=== PATIENT | male | born 1960 | race Caucasian/White ===

== ENCOUNTER 2017-02-05 17:24 | Emergency (ER) | payer OTHER ==
[~2017-02-05] VITALS: Ht 195.6 cm; Wt 130.0 kg
[~2017-02-05 17:24] MED LIST: ASPEC325 PO; CALC500C70 PO; CYCL10TA6 PO; DOCU-94 PO; EFFSR150 PO; FLM4 PO; HYDO25 TD; HYDR25TA5 PO; LEVO100T7 PO; MRLP17X PO; MULT-513 PO; NIFE1TAB53 PO; OMEP40CA41 PO; RXC5 PO; SNK PO; SUMA100T16 PO
[2017-02-05 17:30] VITALS: TEMP 36.9; Ht 195.6 cm; Wt 130.0 kg
[2017-02-05] MEDS ORDERED: METO-217 PO (17:44)
[2017-02-05] MEDS ORDERED: DOCU100C31 PO (17:57)
--- NOTE | 2017-02-05 18:20 | DIAGNOSTIC IMAGING REPORT ---
RIGHT FEMUR 3 VIEWS CLINICAL HISTORY: Right leg pain. FINDINGS: AP, lateral, and frog-leg views of the right femur are correlated with right hip radiographs dated 03/14/2014. The skeletal structures are osteopenic. A bipolar right hip arthroplasty is in near-anatomic alignment. A single cerclage wire is present around the femoral stem. More proximal cerclage wires seen on 03/22/2014 have been removed. There is periprosthetic lucency seen proximally. No fracture is identified. Chronic deformity of the proximal femur is unchanged. The distal femur is intact. 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 No bony erosion or periostitis is identified. Soft tissue edema is present in the right upper thigh. No subcutaneous gas is seen. The visualized right hemipelvis appears intact. IMPRESSION: 1. Soft tissue edema is present in the upper thigh. No acute bony abnormality is identified in the right femur. 2. A right hip arthroplasty is in near-anatomic alignment. Periprosthetic lucency is seen around the proximal aspect of the arthroplasty. 3. Additional findings as above. Electronically signed by: Robin Benitez M.D. 02/05/2017 6:19 PM Dictated Date/Time: 02/05/2017 6:16 PM
--- NOTE | 2017-02-05 20:18 | DIAGNOSTIC IMAGING REPORT ---
ULTRASOUND SOFT TISSUES RIGHT THIGH NONVASCULAR CLINICAL HISTORY: Right thigh swelling and erythema. COMPARISON STUDY: Radiographs of the right femur dated 02/05/2017. FINDINGS: Real-time, grayscale, and color flow sonography of the soft tissues of the right outer thigh is performed at the indicated site of interest. There is diffuse subcutaneous soft tissue edema in this region with pockets of subcutaneous fluid. No organized fluid collection is seen to suggest abscess. Mild hyperemia is suggested on color imaging. IMPRESSION: There is diffuse subcutaneous soft tissue edema with pockets of subcutaneous fluid identified within the right thigh at the site of interest, possibly representing cellulitis. There is no organized/drainable fluid collection seen to indicate abscess. Electronically signed by: Robin Benitez M.D. 02/05/2017 8:16 PM Dictated Date/Time: 02/05/2017 8:14 PM
[2017-02-05] MEDS ORDERED: CEPHALEXIN 500MG HOME PACK 1 EA BTL PO ONE (20:45)
[2017-02-05] MEDS ORDERED: CEPH500C PO ×2 (21:01→21:18)
--- NOTE | 2017-02-05 21:03 | EMERGENCY ROOM VISIT NOTE ---
ED Visit Note First contact with patient: 17:47 CHIEF COMPLAINT: Painful lump of the right upper, outer thigh HISTORY OF PRESENT ILLNESS: This 56-year-old male patient presents to the emergency department, ambulatory, with his , complaining of progressive worsening of a bump on his right upper outer thigh. He states he initially saw his PCP regarding the lump 2 weeks ago. He states at that time it was very small and flesh-colored. He said over the past 2 weeks, it has been increasing in pain, size, and turning red and warm. He states there is a significant amount of pain, but denies any drainage. The patient did have an x-ray performed by his PCP and was sent to orthopedics for evaluation due to the patient's history of hip replacement. The patient describes the pain as burning and rates it 9/10. He denies any history of abscess or cellulitis. He denies any open wounds. The patient is a patient of Dr. Slaughter of [facility]. He did see him and was told that it could be a muscular problem related to his previous hip replacement. The patient denies fever, chills, nausea, or loss of appetite. Movement of the right upper leg is not decreased because of the pain. The patient's tetanus shot is up to date. REVIEW OF SYSTEMS: A 10 system review of systems was performed with positives and pertinent negatives listed in the history of present illness. All other systems were reviewed and are negative. ALLERGIES: NSAIDs MEDICATIONS: Please see list. PMH: Hypertension, GERD, hypothyroidism SOCIAL HISTORY: The patient lives locally with family. He denies drug, alcohol , tobacco use. PHYSICAL EXAM: Vital Signs: Reviewed Nurse's notes, Temperature 36.9C, vital signs stable. GENERAL: This is a an obese 56-year-old white male, in no acute distress, is non toxic in appearance, well-developed, well-nourished. SKIN: The upper right lateral thigh is red, warm, very tender, and swollen. There is no lymphangitic streaking. There is no discharge. There is no fluctuance. There is mild induration. HEART: Regular rate and rhythm without murmur, gallop, or rub. LUNGS: Clear to auscultation bilaterally without wheezes, rales, or rhonchi. NEURO: Alert and oriented to person, place, and time. Normal sensation to light and sharp touch. Capillary reflex less than 2 seconds. Peripheral pulses 2 + bilaterally. RADIOLOGY: U/S Right Lower Extremity (thigh): ULTRASOUND SOFT TISSUES RIGHT THIGH NONVASCULAR CLINICAL HISTORY: Right thigh swelling and erythema. COMPARISON STUDY: Radiographs of the right femur dated 02/05/2017. FINDINGS: Real-time, grayscale, and color flow sonography of the soft tissues of the right outer thigh is performed at the indicated site of interest. There is diffuse subcutaneous soft tissue edema in this region with pockets of subcutaneous fluid. No organized fluid collection is seen to suggest abscess. Mild hyperemia is suggested on color imaging. IMPRESSION: There is diffuse subcutaneous soft tissue edema with pockets of subcutaneous fluid identified within the right thigh at the site of interest, possibly representing cellulitis. There is no organized/drainable fluid collection seen to indicate abscess. Electronically signed by: Robin Benitez M.D. 02/05/2017 8:16 PM Dictated Date/Time: 02/05/2017 8:14 PM X-RAY RIGHT FEMUR: RIGHT FEMUR 3 VIEWS CLINICAL HISTORY: Right leg pain. FINDINGS: AP, lateral, and frog-leg views of the right femur are correlated with right hip radiographs dated 03/14/2014. The skeletal structures are osteopenic. A bipolar right hip arthroplasty is in near-anatomic alignment. A single cerclage wire is present around the femoral stem. More proximal cerclage wires seen on 03/22/2014 have been removed. There is periprosthetic lucency seen proximally. No fracture is identified. Chronic deformity of the proximal femur is unchanged. The distal femur is intact. 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 No bony erosion or periostitis is identified. Soft tissue edema is present in the right upper thigh. No subcutaneous gas is seen. The visualized right hemipelvis appears intact. IMPRESSION: 1. Soft tissue edema is present in the upper thigh. No acute bony abnormality is identified in the right femur. 2. A right hip arthroplasty is in near-anatomic alignment. Periprosthetic lucency is seen around the proximal aspect of the arthroplasty. 3. Additional findings as above. Electronically signed by: Robin Benitez M.D. 02/05/2017 6:19 PM Dictated Date/Time: 02/05/2017 6:16 PM EMERGENCY DEPARTMENT COURSE: I examined the patient. An x-ray and ultrasound were ordered to evaluate the lesion. These were reviewed by myself and radiologist and were as described above. I did consult with Dr. De Santiago regarding the patient condition and proper management at this time. He recommended antibiotics and have the patient follow-up on Tuesday, but did not feel that the hardware was in any danger or causing any significant problem at this time. He suspected the heterotopic bone could be the cause of the patient' s symptoms at this time. The patient was given a home pack of Keflex, discharge instructions reviewed, and the patient was discharged home in good condition. I attest that I have personally reviewed the patient's current medication list. Patient was found to have normal blood pressure on screening and does not require follow-up. 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 (10) Septicemia Nos Status: Resolved Surgical Problems: (1) H/O colonoscopy Status: Chronic (2) H/O cystoscopy Status: Chronic (3) H/O esophagogastroduodenoscopy Status: Chronic (4) History of hip surgery Status: Chronic Current/Historical Medications Scheduled Calcium/Vitamin D (Os-Carlo 500 Plus D), 1 TAB PO DAILY Cephalexin Monohydrate (Keflex), 500 MG PO QID Docusate Sodium (Docusate Sodium), 100 MG PO BID Hydrochlorothiazide (Hydrochlorothiazide), 25 MG PO DAILY Levothyroxine Sodium (Levothyroxine Sodium), 100 MCG PO DAILY Metoprolol Succinate (Toprol Xl), 50 MG PO DAILY Multivitamins/Minerals (Mvi With Minerals), 1 TAB PO DAILY Nifedipine (Nifedipine Er), 30 MG PO DAILY Omeprazole (Prilosec), 40 MG PO DAILY Tamsulosin HCl (Tamsulosin HCl), 0.4 MG PO DAILY Venlafaxine Hcl (Effexor Extended Rel), 300 MG PO DAILY Scheduled PRN Cyclobenzaprine Hcl (Flexeril), 10 MG PO BID PRN for Muscle Spasm Sumatriptan Succinate (Imitrex), 100 MG PO UD PRN for Migraine Allergies Coded Allergies: NSAIDs (Verified Adverse Reaction, Severe, KIDNEY FAILURE, 02/05/17) Vital Signs Date Time Temp Pulse Resp B/P (MAP) Pulse Ox O2 Delivery O2 Flow Rate FiO2 02/05/17 21:20 92 18 133/80 95 Room Air 02/05/17 17:30 36.9 95 20 160/89 97 Room Air Medications Administered Medications (Trade) Dose Ordered Sig/Patricia Route Start Time Stop Time Status Last Admin Dose Admin Cephalexin Monohydrate (Keflex 500MG Home Pack) 1 homepack NOW ONCE PO 02/05/17 20:45 02/05/17 20:46 DC 02/05/17 21:19 1 HOMEPACK Departure Information Impression Primary Impression: Cellulitis of right lower extremity Dispostion Home / Self-Care Condition GOOD Prescriptions Cephalexin Monohydrate (Keflex) 500 Mg Cap 500 MG PO QID for 10 Days, #40 CAP Prov: Yanira Romo PA-C 02/05/17 Referrals Bhargav Kessler M.D. (PCP) Patient Instructions ED Infec Skin Cellulitis, [facility] Additional Instructions You were seen in the emergency department today for right leg redness, swelling , and pain. Diagnosed with cellulitis. Cephalexin(Keflex) 500mg: Take one pill four times daily for 10 days for your skin infection. All antibiotics can cause diarrhea. If this occurs and you feel worse or it does not resolve in 1-2 days follow up with your doctor or return to the Emergency Department as this could be signs of serious underlying problems. Any medication can cause an allergic reaction, stop the pills immediately and return to the ER for rash, hives, breathing difficulties, or swelling. Acetaminophen(Tylenol) may be used for fever or pain. Use 1000mg every six hours as needed. Avoid using more than 3000mg in a 24 hour period. Please follow up with [facility] on Tuesday. Please call them first thing Tuesday morning to schedule this appointment. Left them know that I did speak with Dr. De Santiago over the weekend and he did recommend follow-up. Return to the emergency department for worsening redness, swelling, puslike drainage, fever, chills, nausea, vomiting, or increased pain.
[2017-02-05 21:20] VITALS: BP 133/80; PULSE 92; O2SAT 95
== END 2017-02-05 21:24 | disposition home or self-care (01) ==
LOC: C.EDB 17:25 → C.EDD 21:24
DX: L03.115 Cellulitis of right lower limb (principal); I10 Essential (primary) hypertension; F32.9 Major depressive disorder, single episode, unspecified; E03.9 Hypothyroidism, unspecified; K21.9 Gastro-esophageal reflux disease without esophagitis; Z98.890 Other specified postprocedural states; Z96.649 Presence of unspecified artificial hip joint; Z79.899 Other long term (current) drug therapy

== ENCOUNTER → 2017-02-09 | Outpatient (CLI) | payer OTHER ==
[~2017-02-09] MED LIST changes: -ASPEC325 PO; +CEPH500C PO; -DOCU-94 PO; +DOCU100C31 PO; -HYDO25 TD; +METO-217 PO; -MRLP17X PO; -RXC5 PO; -SNK PO; +TRAM-10 PO
[2017-02-09 12:21] LABS: BASO % 0.4 %; BASO ABS # 0.03 K/uL (0-0.2); COMPLETE YES; EOS % 1.8 %; HEMATOCRIT 42.8 % (42-52); IG% 0.6 %; LYMPH % 13.7 %; LYMPH ABS # 1.06 K/uL (1.2-3.4); MEAN CELL VOLUME 76.7 fL (80-100); MEAN CORPUSCULAR HEMOGLOBIN 24.2 pg (25-34); MEAN CORPUSCULAR HGB CONC 31.5 g/dl (32-36); MEAN PLATELET VOLUME 8.6 fL (7.4-10.4); NEUT % 76.5 %; PLATELET COUNT 404 K/uL (130-400); RED BLOOD COUNT 5.58 M/uL (4.7-6.1); WHITE BLOOD COUNT 7.76 K/uL (4.8-10.8)
--- NOTE | 2017-02-09 16:29 | DIAGNOSTIC IMAGING REPORT ---
BONE SCAN 3 PHASE LIMITED HISTORY: 56 years-old Male L02.91 patient presents with cellulitis of the right hip for one month. History of prior right hip surgery 2010, 2011 and 2012 COMPARISON: Bone scan 01/10/2012, right femur radiographs 01/14/2012, pelvis radiographs 09/07/2015 TECHNIQUE: 3 phase bone scan anterior and posterior images of the pelvis were obtained utilizing 27.4 mCi technetium 99 MDP. Flow images were obtained immediately. Delayed images were obtained 3 hours following injection. FINDINGS: There is moderately increased flow, blood pool and delayed uptake about the right hip, most pronounced anteriorly within the region of the femoral neck and intratrochanteric region. Mildly increased tracer uptake about the right acetabulum suggests remodeling changes. No significant uptake is seen surrounding the femoral stem of the right hip arthroplasty to suggest loosening. Delayed images of the bilateral knees show mildly increased radiotracer uptake suggesting degenerative changes. IMPRESSION: 1. Moderate three-phase positive uptake is present about the proximal right femur, notably within the region of the femoral neck and intertrochanteric region outlining the femoral prosthesis. No significant uptake is seen surrounding the distal femoral stem to suggest loosening. Differential considerations would include remodeling changes from prior surgery or alternatively osteomyelitis. Correlation with radiographs recommended. 2. Increased flow and blood pool uptake within the soft tissues about the right hip suggests cellulitis. The above report was generated using voice recognition software. It may contain grammatical, syntax or spelling errors. Electronically signed by: Gustavo Funez M.D. 02/09/2017 4:28 PM Dictated Date/Time: 02/09/2017 4:13 PM
--- NOTE | 2017-02-10 22:01 | HISTORY & PHYSICAL EXAMINATION ---
DATE OF ADMISSION: 02/09/2017 CHIEF COMPLAINT: Increased right hip pain. HISTORY OF PRESENT ILLNESS: This is a 56-year-old male patient of Dr. Slaughter who is complaining of recent right hip pain and swelling. The patient has a complex history of right total hip replacement in December of 2010. He subsequently underwent a right revision total hip replacement in January of 2012. He underwent a third surgery in November of 2014 where he had removal of deep hardware of the right hip as well as the gluteus medius repair. Recently since 02/05/2017, the patient has been experiencing increased swelling and pain in his anterior lateral hip on the right side. He denies any injuries or trauma. The patient was worked up at the Emergency Room, he was given Keflex and diagnosed with cellulitis. He followed up with Dr. Slaughter in the office. A bone scan revealed increased uptake of soft tissue to reveal fluid collection in the anterior lateral aspect of his thigh. Also, an MRI confirmed the fluid collection around the anterior aspect of his thigh as well as into the trochanteric bursa area of his hip. The patient was diagnosed clinically and diagnostically with a right hip abscess. Due to the nature of the abscess and position of it, there is a likelihood that there could be a possible right hip infection due to his history of right hip arthroplasty. The patient will be admitted for a right hip incision and drainage, possible revision, femoral head and poly exchange acetabular components, possible excision of heterotopic bone of the right hip as well as I&D drainage of right hip abscess. PAST MEDICAL HISTORY: Hypertension, hypothyroidism, osteoarthritis, acid reflux. SOCIAL HISTORY: Nonsmoker, nondrinker. SURGICAL HISTORY: The above-mentioned surgical histories including the right clavicle and right ankle. FAMILY HISTORY: Noncontributory. REVIEW OF SYSTEMS: The patient complains of recent chronic right hip pain. Otherwise, denies any shortness of breath, chest pain, nausea, vomiting or any other joint complaints. MEDICATIONS: 1. Metoprolol 50 mg daily. 2. Tamsulosin 0.4 mg daily. 3. Nifedipine 30 mg daily. 4. Levoxyl 100 mcg daily. 5. Effexor 150 mg b.i.d. 6. Imitrex 100 mg p.r.n. migraines. 7. Prilosec 40 mg daily. 8. Aspirin 325 mg daily. 9. Tramadol 50 mg as needed. 10. Hydrochlorothiazide 25 mg daily. 11. Ferrous sulfate vitamin daily. 12. Viagra 100 mg as needed. 13. Stool softener Dulcolax 100 mg b.i.d. 14. Men's multivitamin. 15. Flexeril 10 mg t.i.d. as needed. ALLERGIES: Uncharted at this point in time. PHYSICAL EXAMINATION: GENERAL: Well-developed, well-nourished 56-year-old male, in no acute distress. He is alert and oriented x3 and pleasant. HEENT: Normocephalic, atraumatic. Extraocular motions are intact. Pupils are equal and reactive to light. HEART: Regular rate and rhythm, no murmurs appreciated. LUNGS: Clear. ABDOMEN: Soft, nontender, bowel sounds present. EXTREMITIES: Right hip reveals positive 6 cm circular erythematic redness around the anterior aspect of his thigh. There is no drainage. Skin is intact. His actual total hip arthroplasty incision is clean, dry and intact and benign. He has pain free range of motion. He has 4/5 strength in his lower extremity, and neurologically and neurovascularly he is intact in his right lower extremity. DIAGNOSES: Right hip chronic pain with hip on the right side abscess. He also has a history of hypertension, hyperthyroidism, osteoarthritis, and acid reflux. PLAN: The patient was advised of his diagnosis. Indications, risks, benefits, and postop course have all been reviewed. The patient wishes to proceed with a right hip I&D abscess, probable I&D hip joint with a possible revision, total hip arthroplasty with placement of antibiotic beads. Necessary consent forms, preoperative testing and clearances will be obtained.
== END | disposition home or self-care (01) ==
LOC: C.NUCL 09:51
PROVIDERS: ATTEND Orthopaedic Surgery Sports Medicine
DX: L02.91 Cutaneous abscess, unspecified (principal); Z96.641 Presence of right artificial hip joint

== ENCOUNTER 2017-02-11 12:49 | Inpatient (IN) | payer OTHER ==
--- NOTE | 2017-02-10 15:28 | DIAGNOSTIC IMAGING REPORT ---
CHEST 2 VIEWS ROUTINE HISTORY: Preop. Right Hip Trochanteric Bursa Abscess COMPARISON: Chest 01/22/2015. FINDINGS: The lungs are clear. The heart is normal in size. Postoperative changes at the right clavicle. No pleural effusions. No pneumothorax. IMPRESSION: No acute process. Electronically signed by: Andrew Bullock M.D. 02/10/2017 3:26 PM Dictated Date/Time: 02/10/2017 3:26 PM
[2017-02-10 15:41] LABS: BASO % 0.5 %; BASO ABS # 0.03 K/uL (0-0.2); COMPLETE YES; EOS % 1.7 %; HEMATOCRIT 39.6 % (42-52); IG% 0.6 %; LYMPH % 18.6 %; MEAN CORPUSCULAR HGB CONC 32.8 g/dl (32-36); MEAN PLATELET VOLUME 8.6 fL (7.4-10.4); MONO % 7.1 %; NEUT % 71.5 %; PLATELET COUNT 412 K/uL (130-400); RED BLOOD COUNT 5.21 M/uL (4.7-6.1); WHITE BLOOD COUNT 6.44 K/uL (4.8-10.8)
[2017-02-10 15:50] LABS: URINE BILIRUBIN NEG (NEG); URINE COLOR YELLOW; URINE NITRITE NEG (NEG); URINE PH 5.5 (4.5-7.5); URINE SPECIFIC GRAVITY 1.019 (1.000-1.030); UROBILINOGEN NEG (NEG); ZZUR CULT IF INDIC CLEAN CATCH NO
[2017-02-10 15:51] LABS: MANUAL MICROSCOPIC REQUIRED? NO; REVIEW REQ? NO
[2017-02-10 15:57] LABS: PROTHROMBIN TIME (PATIENT) 11.2 SECONDS (9.0-12.0)
[2017-02-10 16:12] LABS: BLOOD UREA NITROGEN 12 mg/dl (7-18); BUN/CREATININE RATIO 9.3 (10-20); CALCIUM 9.5 mg/dl (8.5-10.1); CARBON DIOXIDE 29 mmol/L (21-32); CHLORIDE 99 mmol/L (98-107); CREATININE 1.24 mg/dl (0.60-1.40); GLUCOSE 83 mg/dl (70-99); POTASSIUM 3.8 mmol/L (3.5-5.1); SODIUM 135 mmol/L (136-145)
[2017-02-10 17:32] VITALS: BMI 34.0
[~2017-02-11] VITALS: Ht 195.6 cm; Wt 129.5 kg
[2017-02-11 07:05] LABS: ESTIMATED AVERAGE GLUCOSE 126 mg/dl; HA1C FLAG Normal (Normal)
[~2017-02-11 12:49] MED LIST changes: +ACETAMINOPHEN 500 MG TAB PO SCH; +CEFAZOLIN 3000MG IV PUSH 15 ML IV SCH; +DEXAMETHASONE 4 MG TAB PO SCH; +FAMOTIDINE 20 MG TAB PO SCH; +GABAPENTIN 300 MG CAP PO SCH; +LACTATED RINGER'S 1000ML IV SCH; +METOCLOPRAMIDE HCL 10 MG TAB PO SCH; +VANCOMYCIN INJ 2,000 MG in SODIUM CHLORIDE 0.9% 500ML 500 ML IV SCH
[2017-02-11 13:25] VITALS: BP 135/88; PULSE 89; TEMP 36.8; O2SAT 98; Ht 195.6 cm; Wt 129.5 kg
[2017-02-11] MEDS ORDERED: BACITRACIN 50000 UNIT VIAL ONE (16:03)
[2017-02-11] MEDS ORDERED: VANCOMYCIN HCL 1000MG/20ML VIAL ONE ×2 (16:03→21:18)
[2017-02-11] MEDS ORDERED: PHENYLEPHRINE HCL INJ 10 MG/ML VIAL ONE ×2 (16:04→19:36)
[2017-02-11] MEDS ORDERED: MIDAZOLAM HCL 1 MG/ML 2ML VIAL ONE ×2 (16:04→16:37)
[2017-02-11] MEDS ORDERED: EpHEDrine SULFATE INJ 50 MG/ML AMP ONE (16:04)
[2017-02-11] MEDS ORDERED: LIDOCAINE HCL 2% 2 ML VIAL (20MG/ML) ONE (16:04)
[2017-02-11] MEDS ORDERED: FENTANYL CITRATE INJ 50 MCG/1 ML 2 ML VIAL ONE ×5 (16:04→23:25)
[2017-02-11] MEDS ORDERED: DEXAMETHASONE SOD INJ 4 MG/ML VIAL ONE (16:04)
[2017-02-11] MEDS ORDERED: NEOSTIGMINE METHYLSULFATE 5 MG/5 ML SYR ONE (16:04)
[2017-02-11] MEDS ORDERED: PROPOFOL IV EMULSION 10 MG/ML 20 ML VIAL IV ONE (16:04)
[2017-02-11] MEDS ORDERED: ONDANSETRON INJ 2 MG/ML 2 ML VIAL ONE ×2 (16:04→22:15)
[2017-02-11] MEDS ORDERED: SUCCINYLCHOLINE CHLORIDE 20 MG/ML 10 ML VIAL IV ONE (16:04)
[2017-02-11] MEDS ORDERED: GLYCOPYRROLATE INJ 0.2 MG/ML VIAL ONE (16:04)
[2017-02-11] MEDS ORDERED: BUPIVACAINE 0.5 % 5 MG/1 ML PF 10ML VIAL ONE (16:37)
--- NOTE | 2017-02-11 16:43 | History & Physical Bridge Note ---
H&P Re-Evaluation Bridge Note: I have examined the patient, reviewed the History & Physical and in the interval since the performance of the History & Physical I have noted the following changes of clinical significance: No changes noted
[2017-02-11] MEDS ORDERED: GENTAMICIN SULFATE 40 MG/ML 2 ML VIAL ONE ×2 (17:47→21:18)
[2017-02-11] MEDS ORDERED: ALBUMIN HUMAN 5% 12.5 GM/250 ML VIAL IV ONE (18:51)
[2017-02-11] MEDS ORDERED: ROCURONIUM BROMIDE 10 MG/ML 5 ML VIAL IV ONE ×3 (19:36→22:12)
[2017-02-11] MEDS ORDERED: ONDANSETRON INJ 2 MG/ML 2 ML VIAL IV PRN ×2 (21:00→23:00)
[2017-02-11] MEDS ORDERED: LABETALOL HCL IV 5 MG/ML 20ML IV PRN (21:00)
[2017-02-11] MEDS ORDERED: ATROPINE SULFATE 0.1 MG/ML 5ML SYR IV PRN (21:00)
[2017-02-11] MEDS ORDERED: HYDROmorphone INJ 1 MG/ML SYR IV PRN (21:00)
[2017-02-11] MEDS ORDERED: EpHEDrine SULFATE INJ 50 MG/ML AMP IV PRN (21:00)
[2017-02-11] MEDS ORDERED: PHENYLEPHRINE 100MCG/ML 5ML SYR IV PRN (21:00)
[2017-02-11] MEDS ORDERED: FENTANYL CITRATE INJ 50 MCG/1 ML 2 ML VIAL IV PRN (21:00)
[2017-02-11] MEDS ORDERED: PROMETHAZINE HCL INJ 12.5 MG in SODIUM CHLORIDE 0.9% 50ML 50 ML IV PRN (21:00)
[2017-02-11] MEDS ORDERED: POVIDONE-IODINE OP SOLN 30 ML BTL ONE (21:19)
[2017-02-11] MEDS ORDERED: GELATIN SPONGE SZ 100 ONE (21:42)
[2017-02-11] MEDS ORDERED: MAGNESIUM HYDROXIDE SUSP 30 ML UDC PO PRN (23:00)
[2017-02-11] MEDS ORDERED: CYCLOBENZAPRINE HCL 10 MG TAB PO PRN (23:00)
[2017-02-11] MEDS ORDERED: MoRPHine SULFATE 2 MG/ML CARP IV PRN (23:00)
[2017-02-11] MEDS ORDERED: SUMATRIPTAN SUCC TAB 100 MG TAB PO PRN (23:00)
[2017-02-11] MEDS ORDERED: METOCLOPRAMIDE HCL INJ 5 MG/ML 2 ML VIAL IV PRN (23:00)
[2017-02-11] MEDS ORDERED: ZOLPIDEM TARTRATE 5 MG TAB PO PRN (23:00)
[2017-02-11] MEDS ORDERED: BISACODYL 10 MG SUPP PR PRN (23:00)
[2017-02-11] MEDS ORDERED: SOD PHOSPHATE/SOD BIPHOSPHATE ENEMA 132 ML BTL PR PRN (23:00)
[2017-02-12] VITALS (10 sets, daily range): BP systolic 116–132; BP diastolic 68–79; PULSE 72–85; TEMP 36.4–37; O2SAT 92–96
--- NOTE | 2017-02-12 00:49 | OPERATIVE REPORT ---
DATE OF OPERATION: 02/11/2017 INDICATION FOR PROCEDURE: The patient is a 56-year-old male who has a history of having a right hip replacement. Years ago, I did primary total hip replacement on him. This was complicated by failure to get bony ingrowth. He had micromotion and had no signs of infection and underwent a long stem revision hip replacement by Dr. Nettles and myself assisting. He had to have a trochanteric osteotomy to actually perform the procedure at that time and it could not be performed with conventional exposure. He did have a trochanteric claw cable device. Over time, the cable device had some motion even though the trochanter healed and was causing irritation and bursitis. Did have a steroid injection in 2012, it was the last time he had an injection. In 2014, this trochanteric fixation device was removed and a bursectomy was performed and he had a small abductor tear that was repaired with suture anchors. It did well after that, his pain resolved and he was back working normally. He works at the [employer]. He does physical labor. He presented to me about a month ago or so with noting a lump on his thigh that was mobile. 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 He did have a large area of anterior lateral ossification which was mobile and it was felt by myself that this area was the heterotopic bone that he was feeling and he had no pain and was asymptomatic in terms of fever or any pain, whatsoever, at that time. He just showed up recently in the Emergency Room this past weekend with cellulitis, was seen by Dr. De Santiago who placed him on Keflex for cellulitis of the thigh as he was noted to have some redness, swelling of the anterior lateral thigh, which was anterior and distal to the incision site from his hip replacement. This redness worsened and it had the appearance of an abscess when I saw him this week, so I worked him up with a bone scan which demonstrated some increased signal activity around the proximal stem only, not the distal stem, so there was no loosening of the stem, but there was definitely inflammation around the proximal stem concerning for possible infection. He had an elevated C-reactive protein and sed rate which were both significantly elevated. We got an MRI with some metal subtraction which demonstrated a very large fluid collection connecting this abscess type area to a large trochanteric bursal fluid collection which suggested to me that there was some posterior communication with the hip joint and possible septic hip replacement. On further questioning about his past history, he said at one point since we had seen him previously, he had admission to [facility] where he was septic and had to have a stent placed from a urinary tract infection. At this time, the working diagnosis is anterolateral thigh abscess which communicates to a trochanteric bursa fluid collection which is likely infection related and possible septic total hip. PREOPERATIVE DIAGNOSES: Right thigh abscess, trochanteric bursal fluid collection, possible septic total hip status post multiply operated on hip with heterotopic ossification and well-fixed components status post revision hip replacement. 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 The patient had extensive heterotopic ossification, extensive scar tissue in hip joint capsule, chronic synovitis and also retained hardware in greater trochanter status post an abductor repair. PROCEDURE: Right hip incision and drainage, hip joint arthrotomy, irrigation and debridement including excision heterotopic ossification, synovectomy, capsulectomy, hardware removal from greater trochanter of old suture material and suture anchors, also incision and drainage and debridement of subcutaneous tissue and fascia right thigh abscess including placement of antibiotic beads and closure over drains. SURGEON: Dr. Slaughter. TUNGSTEN TENDER: Bhargav Covington PA-C. ANESTHESIA: General. OPERATIVE PROCEDURE: The patient was taken to the operating room, anesthetized under a general anesthetic. He was placed supine on the operating room table on a sacral pad. His right leg was placed on a foot bump to flex his knee 90 degrees and hip 60 degrees. His right lower extremity was positioned with the body in some Trendelenburg to drain the pelvic veins tilted to the left to help expose the right hip. Exam demonstrated he had a stable hip replacement. The hip incision laterally was benign. Did have an abscess protruding skin and erythema of the anterior lateral thigh which was at least 6-7 cm in diameter. His right hip and lower extremity was prepped and draped with ChloraPrep in usual sterile fashion. The patient did have preoperative antibiotics. First incision was carried down to the lateral incision from his previous hip replacements. Skin was incised sharply. Scarred fat was divided down to the fascia and reflected off the deep fascia. Then, I opened up the deep fascia until we entered the space between the fascia maria alejandra and gluteus piotr fascia and the gluteus medius and vastus lateralis. In this plane, there was a large posterior fluid collection coming through a rent in the gluteus medius muscle which connected to the posterior hip joint. This was clearly a deep infection. In this fluid itself, there were multiple fronds of chronically inflamed synovial tissue from chronic synovitis. We did get some superficial and deep cultures there. There were some large loculated areas of synovium filled with cloudy fluid that were resected and one of these fluid collections was cultured as well. The abductor repair was still intact but it was difficult to fully determine based on this being such dense scar tissue. I did develop a plane between the gluteus piotr and the fascia maria alejandra and the gluteus medius tendon which was all scarred. Then, I made an incision longitudinally through the vastus lateralis until we got down to the bone continuous to the gluteus medius and then we got into the old suture anchors where the old abductor repair was. We did remove the Healicoil anchors as best as we could using a curette and rongeur, and all the old suture material was removed from the greater trochanter. Then, I elevated the vastus lateralis and the medius off the anterior greater trochanter until we reached the scarred capsule, and then for further exposure, had to split the gluteus medius which was thickened tremendously and scarred, and there were multiple large pieces of heterotopic bone that we had to excise in order to obtain exposure of the hip joint capsule so we could do an arthrotomy and excise the capsule to visualize the hip joint. So multiple large pieces of heterotopic bone were first tediously resected. Then, I did partial capsulectomy until we could identify the hip joint. Within the hip joint, there was more of this chronically inflamed tissue and fronds of synovium, all consistent with chronic hip infection. The inflamed synovial tissue was removed, it was very fibrinous, and we had to use a series of pituitary rongeurs to remove the synovium tissue and we placed retractors around the acetabular component and did a thorough capsulectomy in order to attempt to do a polyethylene exchange and exchanged the femoral head. Because of the dense scar tissue and extensive heterotopic bone including heterotopic bone in the capsule, there was prolonged dissection and time to remove all this synovial tissue and scarred capsule to access the joint. We also debrided scar tissue and capsule from around the proximal greater trochanter around the metallic stem, and after we did a thorough debridement, we went ahead and irrigated the hip joint copiously with antibiotic solution with bacitracin. The anterior abscess was then addressed. I made a longitudinal incision across the abscess about 8-10 cm and the skin was incised sharply. When I entered this anterior thigh abscess, there really was not pus in there and there was more of a carbuncle appearing scarred fat and fascia with a sinus tract. I did a thorough debridement of the fat and fascia that appeared to be infected from the sinus tract, and then we did connect this to the hip incision. We did irrigate this copiously with antibiotic solution and bacitracin as well. The area of the posterior hip joint was also debrided. There was a large area of synovial tissue and synovial fluid collection posterior to the hip joint through that gluteus medius split and we did debride around this. We could visualize the stem through that area as well and removed all the synovitic tissue in that area as well. I also developed a plane between the iliopsoas and the capsule in order to do a capsulectomy and remove all the inflamed synovial tissue. We also decompressed the iliopsoas fluid collection which was noted on MRI. I attempted to dislocate the hip and I could not dislocate it manually and there was no shuck and there was so much scar tissue in the abductors that the hip was solidly fixed. I did use a bone hook and I was able to sublux the hip off the edge of the acetabulum, but I could not rotate the hip to get the head off or get adequate exposure to remove the acetabulum. The only way to be able to do that would be to do a trochanteric osteotomy or to totally release all of the abductor tendons off the greater trochanter. At this point, we had already lost 1200 mL of blood and had been in the OR for a number of hours and I felt that to go ahead and take down the abductors for the ability to just take off the femoral head and the cup and that the definitive treatment for this chronic infection would be to remove all the components, that it would be best at this point in the procedure to just wash out the joint, leave the implants in place and use antibiotic beads and drains. At this point then, after further copious irrigation of all wounds, we did a Betadine soak of all wounds and then irrigated out all wounds again. We mixed antibiotic beads with vancomycin and gentamicin. We packed beads in the posterior joint tract that went to the medius. We packed the abscess with beads and individual layers as we closed and placed deep drains into the joint, drains between the fascia maria alejandra and the gluteus medius, we placed drains in the abscess anteriorly. I used large #2 Vicryl sutures to close the gluteus medius soft tissue repair. Vastus lateralis was closed with #2 Vicryl sutures as well, and the fascia maria alejandra and gluteus piotr fascia was closed with interrupted [id number] #1 Vicryl sutures and the fat was closed with interrupted 2-0 Vicryl and skin was closed with sunny. The thigh abscess was closed with #1 Vicryl subcutaneous sutures and sunny. Estimated blood loss less was 1500 mL. The patient tolerated the procedure well at the time of this dictation. Bhargav Covington PA-C, was my first beater and functioned as first beater for the entire procedure. He assisted in patient positioning, prepping, draping, soft tissue retraction, instrument management, assisted in the closure and will participate in postoperative care of the patient. I attest to the content of the Intraoperative Record and any orders documented therein. Any exception s are noted below.
[2017-02-12] MEDS ORDERED: D5W AND 1/2NSS + 20MEQ KCL 1,000 ML IV SCH (01:15)
[2017-02-12] MEDS ORDERED: MoRPHine SULFATE 4 MG/ML 1 ML CARP\\VIAL IV PRN ×2 (01:15→01:30)
--- NOTE | 2017-02-12 01:25 | Anesthesiology Progress Note ---
Anesthesia Post Op Note Date & Time Feb 12, 2017 at 01:24 Vital Signs Pain Intensity: 10 Vital Signs Past 12 Hours Date Time Temp Pulse Resp B/P (MAP) Pulse Ox O2 Delivery O2 Flow Rate FiO2 02/12/17 01:00 36.7 72 18 116/74 (88) 95 Room Air 02/12/17 00:10 36.5 80 12 112/69 (72) 94 Room Air 02/12/17 00:00 80 12 110/60 (70) 92 Room Air 02/11/17 23:50 80 12 100/63 (71) 97 Room Air 02/11/17 23:40 86 9 100/62 (67) 95 Room Air 02/11/17 23:30 78 15 109/64 (68) 93 Room Air 02/11/17 23:20 81 16 103/63 (71) 92 Room Air 02/11/17 23:10 86 10 112/73 (81) 97 Oxymask 5 02/11/17 23:00 93 15 123/75 (89) 98 Oxymask 5 02/11/17 22:51 36.7 95 8 105/81 (87) 92 Oxymask 5 02/11/17 13:25 36.8 89 20 135/88 98 Room Air Notes Mental Status: alert / awake / arousable, participated in evaluation Pt Amnestic to Procedure: Yes Nausea / Vomiting: adequately controlled Pain: adequately controlled Airway Patency, RR, SpO2: stable & adequate BP & HR: stable & adequate Hydration State: stable & adequate Anesthetic Complications: no major complications apparent
[2017-02-12] MEDS ORDERED: VANCOMYCIN INJ 2,000 MG in SODIUM CHLORIDE 0.9% 500ML 500 ML IV SCH (01:30)
[2017-02-12] MEDS: OXYCODONE HCL IR 5 MG TAB (IMMEDIATE RELEASE) PO PRN ×2 (01:34→19:36)
[2017-02-12] MEDS ORDERED: SODIUM CHLORIDE 0.9% 1000ML 1,000 ML IV ONE (02:00)
[2017-02-12 02:06] LABS: HEMATOCRIT 31.7 % (42-52)
[2017-02-12] MEDS: ACETAMINOPHEN 500 MG TAB PO SCH ×3 (02:37→16:17)
[2017-02-12 03:26] LABS: CREATININE 1.81 mg/dl (0.60-1.40); MAGNESIUM 1.9 mg/dl (1.8-2.4)
[2017-02-12 03:58] LABS: MEAN CELL VOLUME 78.3 fL (80-100); MEAN CORPUSCULAR HEMOGLOBIN 25.3 pg (25-34); MEAN CORPUSCULAR HGB CONC 32.3 g/dl (32-36); MEAN PLATELET VOLUME 8.9 fL (7.4-10.4); PLATELET COUNT 412 K/uL (130-400); RED BLOOD COUNT 3.96 M/uL (4.7-6.1); WHITE BLOOD COUNT 13.12 K/uL (4.8-10.8)
[2017-02-12] MEDS: LEVOTHYROXINE 100 MCG TAB PO SCH (05:40)
[2017-02-12] MEDS ORDERED: VANCOMYCIN INJ 1,000 MG in SODIUM CHLORIDE 0.9% 250ML 250 ML IV SCH (09:00)
[2017-02-12] MEDS ORDERED: HYDROCHLOROTHIAZIDE 25 MG TAB PO SCH (09:00)
[2017-02-12] MEDS ORDERED: ASPIRIN 325 MG ECTAB PO SCH (09:00)
[2017-02-12] MEDS: PANTOprazole SOD 40 MG TAB PO SCH (09:19)
[2017-02-12] MEDS: MULTIVITAMIN TAB PO SCH (09:19)
[2017-02-12] MEDS: TAMSULOSIN HCL 0.4 MG CAP PO SCH (09:19)
[2017-02-12] MEDS: VENLAFAXINE HCL XR 150 MG CAPXR PO SCH (09:19)
[2017-02-12] MEDS: DOCUSATE SODIUM 100 MG CAP PO SCH ×2 (09:20→20:33)
[2017-02-12] MEDS: NIFEdipine 30 MG CR TAB PO SCH (09:20)
[2017-02-12] MEDS: CALCIUM 600MG + VIT D 400 IU TAB PO SCH (09:20)
[2017-02-12] MEDS: METOPROLOL SUCC 50MG EXT REL TAB PO SCH (09:20)
[2017-02-12] MEDS: CEROVITE ADV FORMULA TAB PO SCH (09:20)
[2017-02-12] MEDS: ASPIRIN 81 MG ECTAB PO SCH ×2 (09:21→20:33)
[2017-02-12] MEDS: OXYCODONE HCL 10 MG TABCR (OXYCONTIN) PO SCH ×2 (09:24→20:33)
--- NOTE | 2017-02-12 09:43 | Orthopedic Progress Note ---
Orthopedic Progress Note Date of Service Feb 12, 2017. Subjective Post OP Day: 1 Reports: feeling well, pain controlled w PO medications, Denies: complaints, chest pain, SOB, nausea / vomiting, light headedness, calf pain Objective calves soft nontender, N/V intact, capillary refill less than 2 sec., dressing C /D/I, A&O x3, toes mobile Date Time Temp Pulse Resp B/P (MAP) Pulse Ox O2 Delivery O2 Flow Rate FiO2 02/12/17 08:13 Room Air 02/12/17 06:47 36.8 72 20 129/79 (96) 93 Room Air 02/12/17 03:30 36.6 85 16 118/77 (91) 95 Room Air 02/12/17 02:30 36.6 82 18 120/76 (91) 96 Room Air 02/12/17 01:30 36.6 79 18 123/78 (93) 93 Room Air 02/12/17 01:00 36.7 72 18 116/74 (88) 95 Room Air 02/12/17 00:30 36.4 81 12 132/77 (95) 02/12/17 00:30 Room Air 02/12/17 00:30 95 Room Air 02/12/17 00:10 36.5 80 12 112/69 (72) 94 Room Air 02/12/17 00:00 80 12 110/60 (70) 92 Room Air 02/11/17 23:50 80 12 100/63 (71) 97 Room Air 02/11/17 23:40 86 9 100/62 (67) 95 Room Air 02/11/17 23:30 78 15 109/64 (68) 93 Room Air 02/11/17 23:20 81 16 103/63 (71) 92 Room Air 02/11/17 23:10 86 10 112/73 (81) 97 Oxymask 5 02/11/17 23:00 93 15 123/75 (89) 98 Oxymask 5 02/11/17 22:51 36.7 95 8 105/81 (87) 92 Oxymask 5 02/11/17 13:25 36.8 89 20 135/88 98 Room Air Laboratory Results 24 Hours: Test 02/12/17 01:40 Hematocrit 31.0 % Hemoglobin 10.0 g/dL Assessment & Plan Assessment: POD #1 Right hip I&D NANCY and ant thigh abcess with debridement and placement antibx beads. Plan: PT/ OT - WBAT w walker DVT proph- ASA D/C planning- Home likely w HH As per medicine Gram stain many WBC.s, no organisms, Cultures pending. Await ID input, on vanco for now.
[2017-02-12] MEDS: SODIUM CHLORIDE 0.9% 1000ML 1,000 ML IV SCH ×2 (09:54→18:07)
[2017-02-12] MEDS ORDERED: VANCOMYCIN CONSULT ACTIVE PRN (10:29)
[2017-02-12] MEDS ORDERED: PIPERACILL/TAZOBAC CONSULT ACTIVE PRN (10:30)
--- NOTE | 2017-02-12 10:32 | Medical Consult ---
Consultation Date of Consultation: Feb 12, 2017. Attending Physician: Mick Slaughter M.D. Reason for Consultation: Post Operative Medical Management History of Present Illness 56 year old male with history of HTN, Hypothyroidism, BPH, GERD, and other problems noted below presenting with right hip surgery. Patient has a history of right hip arthroplasty involving multiple surgeries in the past. He presented recently with right hip pain and swelling. Upon imaging, patient was found to have right hip abscess. He underwent surgery yesterday under general anesthesia involving I&D, Debridement, removal of hardware and placement of antibiotic beads. Cultures from the drainage are pending. EBL 1500cc. Hospitalist consulted for post operative medical management. On exam, patient seen resting, not in distress. He states he feels fine overall, pain is tolerable. Denies fever/chills, headache, nausea, chest pain, dyspnea, palpitations, dizziness, abdominal pain, diarrhea. No other symptoms. Past Medical/Surgical History Medical Problems: (1) Cellulitis of right lower extremity Status: Acute (2) Depressive Disorder Nec Status: Chronic (3) Migraine Unspecified W/O Intract Mgrn W/O Status Migrainosus Status: Chronic (4) Personal History Of Peptic Ulcer Disease Status: Chronic (5) Sensorneur Hear Loss Nos Status: Chronic Family History Hypertension Social History Smoking Status: Never Smoker Marital Status: Housing Status: lives with significant other Occupation Status: employed Allergies Coded Allergies: NSAIDs (Verified Adverse Reaction, Severe, KIDNEY FAILURE, 02/11/17) Current Inpatient Medications Current Inpatient Medications Medications (Trade) Dose Ordered Sig/Patricia Route Start Time Stop Time Status Last Admin Dose Admin Calcium/Vitamin D (Caltrate Plus Tab) 1 tab DAILY PO 02/12/17 09:00 03/14/17 08:59 02/12/17 09:20 1 TAB Cyclobenzaprine HCl (Flexeril Tab) 10 mg BID PRN PO 02/11/17 23:00 03/13/17 22:59 Levothyroxine Sodium (Synthroid Tab) 100 mcg DAILYBB PO 02/12/17 06:00 03/14/17 05:59 02/12/17 05:40 100 MCG Metoprolol Succinate (Toprol Xl Tab) 50 mg DAILY PO 02/12/17 09:00 03/14/17 08:59 02/12/17 09:20 50 MG Multivitamins/ Minerals (Multivitamin W/ Minerals Tab) 1 tab DAILY PO 02/12/17 09:00 03/14/17 08:59 02/12/17 09:20 1 TAB Nifedipine (Procardia Xl Tab) 30 mg DAILY PO 02/12/17 09:00 03/14/17 08:59 02/12/17 09:20 30 MG Sumatriptan Succinate (Imitrex Tab) 100 mg UD PRN PO 02/11/17 23:00 03/13/17 22:59 Tamsulosin HCl (Flomax Cap) 0.4 mg DAILY PO 02/12/17 09:00 03/14/17 08:59 02/12/17 09:19 0.4 MG Venlafaxine HCl (effeXOR EXTENDED REL CAP) 300 mg DAILY PO 02/12/17 09:00 03/14/17 08:59 02/12/17 09:19 300 MG Oxycodone HCl (Roxicodone Immediate Rel Tab) 1-2 TABS FOR PAIN 1 TABLET ... Q4H PRN PO 02/11/17 23:00 02/25/17 22:59 02/12/17 01:34 10 MG Oxycodone HCl (Oxycontin Tab) 10 mg Q12 PO 02/12/17 09:00 02/26/17 08:59 02/12/17 09:24 10 MG Morphine Sulfate (MoRPHine SULFATE INJ) 2 mg Q2H PRN IV 02/11/17 23:00 02/25/17 22:59 Acetaminophen (Tylenol Tab) 1,000 mg Q8H PO 02/12/17 01:00 03/14/17 00:59 Magnesium Hydroxide (Milk Of Magnesia Susp) 30 ml Q6H PRN PO 02/11/17 23:00 03/13/17 22:59 Bisacodyl (Dulcolax Supp) 10 mg DAILY PRN GA 02/11/17 23:00 03/13/17 22:59 Sodium Biphosphate/ Sodium Phosphate (Fleet Enema) 132 ml DAILY PRN GA 02/11/17 23:00 03/13/17 22:59 Docusate Sodium (coLACE CAP) 100 mg BID PO 02/12/17 09:00 03/14/17 08:59 02/12/17 09:20 100 MG Diphenhydramine HCl (Benadryl Cap) 25 mg Q8H PRN PO 02/11/17 23:00 03/13/17 22:59 Zolpidem Tartrate (Ambien Tab) 5 mg HSZ PRN PO 02/11/17 23:00 03/13/17 22:59 Multivitamins (Multivitamin Tab) 1 tab QAM PO 02/12/17 09:00 03/14/17 08:59 02/12/17 09:19 1 TAB Ondansetron HCl (Zofran Inj) 4 mg Q6H PRN IV 02/11/17 23:00 03/13/17 22:59 Metoclopramide HCl (Reglan Inj) 10 mg Q6H PRN IV 02/11/17 23:00 03/13/17 22:59 Pantoprazole Sodium (Protonix Tab) 40 mg QAM PO 02/12/17 09:00 03/14/17 08:59 02/12/17 09:19 40 MG Morphine Sulfate (MoRPHine SULFATE INJ) 4 mg Q2H PRN IV 02/12/17 01:30 02/26/17 01:14 Aspirin (Ecotrin Tab) 81 mg BID PO 02/12/17 09:00 03/14/17 08:59 02/12/17 09:21 81 MG Sodium Chloride 1,000 ml @ 125 mls/hr Q8H IV 02/12/17 09:45 03/14/17 09:44 02/12/17 09:54 125 MLS/HR Review of Systems Constitutional- no fever; no weight loss Eyes- no acute visual changes ENT- no sinus drainage; no pharyngitis Pulmonary- no cough, no wheezing, no shortness of breath Cardiac- no chest pain, no palpitations, no orthopnea, no dependent edema GI- no nausea, no vomiting, no diarrhea, no melena, no hematochezia - no dysuria, no hematuria Musculoskeletal- (+) as noted above Derm- no rashes, no new skin lesions, no changing skin lesions Hematologic- no unusual bruising, no unusual bleeding Lymphatics- no adenopathy Endocrine- no polyuria or polydipsia; no heat or cold intolerance Neuro- no headaches, no focal neurologic symptoms Psych- no anxiety, no depression Physical Exam Date Time Temp Pulse Resp B/P (MAP) Pulse Ox O2 Delivery O2 Flow Rate FiO2 02/12/17 08:13 Room Air 02/12/17 06:47 36.8 72 20 129/79 (96) 93 Room Air 02/12/17 03:30 36.6 85 16 118/77 (91) 95 Room Air 02/12/17 02:30 36.6 82 18 120/76 (91) 96 Room Air 02/12/17 01:30 36.6 79 18 123/78 (93) 93 Room Air 02/12/17 01:00 36.7 72 18 116/74 (88) 95 Room Air 02/12/17 00:30 36.4 81 12 132/77 (95) 02/12/17 00:30 Room Air 02/12/17 00:30 95 Room Air 02/12/17 00:10 36.5 80 12 112/69 (72) 94 Room Air 02/12/17 00:00 80 12 110/60 (70) 92 Room Air 02/11/17 23:50 80 12 100/63 (71) 97 Room Air 02/11/17 23:40 86 9 100/62 (67) 95 Room Air 02/11/17 23:30 78 15 109/64 (68) 93 Room Air 02/11/17 23:20 81 16 103/63 (71) 92 Room Air 02/11/17 23:10 86 10 112/73 (81) 97 Oxymask 5 02/11/17 23:00 93 15 123/75 (89) 98 Oxymask 5 02/11/17 22:51 36.7 95 8 105/81 (87) 92 Oxymask 5 02/11/17 13:25 36.8 89 20 135/88 98 Room Air General Appearance: WD/WN, no apparent distress Head: normocephalic, atraumatic Eyes: normal inspection, PERRL, EOMI, sclerae normal ENT: normal ENT inspection, hearing grossly normal, pharynx normal Neck: supple, no adenopathy, thyroid normal, no JVD, trachea midline Respiratory/Chest: chest non-tender, lungs clear, normal breath sounds, no respiratory distress, no accessory muscle use Cardiovascular: regular rate, rhythm, no edema, no JVD, no murmur, normal peripheral pulses Abdomen/GI: normal bowel sounds, non tender, soft, no organomegaly Back: normal inspection, no CVA tenderness Extremities/Musculoskelatal: normal inspection, no calf tenderness, no pedal edema, + pertinent finding (right hip surgical dressing and hemovac in place) Neurologic/Psych: 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, no motor/sensory deficits, alert, normal mood/affect, oriented x 3 Skin: normal color, warm/dry, no rash, + rash Laboratory Results Last 24 Hours Test 02/12/17 01:40 02/12/17 02:47 02/12/17 09:45 White Blood Count 13.12 K/uL Red Blood Count 3.96 M/uL Hemoglobin 10.0 g/dL Hematocrit 31.0 % Mean Corpuscular Volume 78.3 fL Mean Corpuscular Hemoglobin 25.3 pg Mean Corpuscular Hemoglobin Concent 32.3 g/dl RDW Standard Deviation 45.2 fL RDW Coefficient of Variation 15.7 % Platelet Count 412 K/uL Mean Platelet Volume 8.9 fL Sodium Level 138 mmol/L Potassium Level 6.0 mmol/L Chloride Level 108 mmol/L Carbon Dioxide Level 25 mmol/L Anion Gap 5.0 mmol/L Blood Urea Nitrogen 22 mg/dl Creatinine 1.81 mg/dl Est Creatinine Clear Calc Drug Dose 67.9 ml/min Estimated GFR () 47.4 Estimated GFR (Non- 40.9 BUN/Creatinine Ratio 12.0 Random Glucose 149 mg/dl Calcium Level 8.0 mg/dl Magnesium Level 1.9 mg/dl Assessment & Plan 56 year old male with history of HTN, Hypothyroidism, BPH, GERD, and other problems noted below presenting with right hip surgery. RIGHT HIP ABSCESS S/P I&D, DEBRIDEMENT, ANTIBIOTIC BEAD PLACEMENT - post op day 1 - afebrile, (+) mild leukocytosis - cultures: R hip abscess: pending R joint fluid: pending - start on empiric Vancomycin and Zosyn recommend ID consultation ACUTE RENAL FAILURE - likely pre renal - crea 1.4--> 1.8 - IV fluids started - hold HCTZ - no NSAIDs, contrasts - monitor crea daily HYPERKALEMIA - check PRP today EKG ok ACUTE BLOOD LOSS ANEMIA - monitor Hg - transfuse to maintain Hg > 8 HYPERTENSION - stable - continue Metoprolol, Nifedipine - hold HCTZ BPH - continue Tamsulosin DVT prophylaxis per Ortho Thank you for this consultation. We will follow the patient with you during their hospital stay. You can reach a member of the [facility] Team 15/11 via pager @ .
[2017-02-12 10:34] LABS: BUN/CREATININE RATIO 15.5 (10-20); CALCIUM 7.9 mg/dl (8.5-10.1); CREATININE 1.51 mg/dl (0.60-1.40); POTASSIUM 4.6 mmol/L (3.5-5.1)
--- NOTE | 2017-02-12 11:02 | Pharmacy Progress Note ---
Pharmacy Antibiotic Consult Date of Service: Feb 12, 2017. Pharmacy Dosing Scope Pharmacy is consulted BY DR TA to initiate VANC/ZOSYN IV dosing therapy, order appropriate labs and adjust drug dose/frequency. Subjective The patient is a 56 year old male admitted on Feb 11, 2017 at 22:56 RIGHT HIP ABSCESS S/P I&D, DEBRIDEMENT, ANTIBIOTIC BEAD PLACEMENT. Objective Height (Feet): 6 Height (Inches): 5 Weight (Kilograms): 129.500 Lab Results (24hrs): Test 02/12/17 01:40 02/12/17 02:47 02/12/17 09:45 White Blood Count 13.12 K/uL (4.8-10.8) Red Blood Count 3.96 M/uL (4.7-6.1) Hemoglobin 10.0 g/dL (14.0-18.0) Hematocrit 31.0 % (42-52) Mean Corpuscular Volume 78.3 fL (80-100) Mean Corpuscular Hemoglobin 25.3 pg (25-34) Mean Corpuscular Hemoglobin Concent 32.3 g/dl (32-36) RDW Standard Deviation 45.2 fL (36.4-46.3) RDW Coefficient of Variation 15.7 % (11.5-14.5) Platelet Count 412 K/uL (130-400) Mean Platelet Volume 8.9 fL (7.4-10.4) Sodium Level 138 mmol/L (136-145) 138 mmol/L (136-145) Potassium Level 6.0 mmol/L (3.5-5.1) 4.6 mmol/L (3.5-5.1) Chloride Level 108 mmol/L (98-107) 107 mmol/L (98-107) Carbon Dioxide Level 25 mmol/L (21-32) 26 mmol/L (21-32) Anion Gap 5.0 mmol/L (3-11) 5.0 mmol/L (3-11) Blood Urea Nitrogen 22 mg/dl (7-18) 23 mg/dl (7-18) Creatinine 1.81 mg/dl (0.60-1.40) 1.51 mg/dl (0.60-1.40) Est Creatinine Clear Calc Drug Dose 67.9 ml/min 81.3 ml/min Estimated GFR () 47.4 59.0 Estimated GFR (Non- 40.9 50.9 BUN/Creatinine Ratio 12.0 (10-20) 15.5 (10-20) Random Glucose 149 mg/dl (70-99) 148 mg/dl (70-99) Calcium Level 8.0 mg/dl (8.5-10.1) 7.9 mg/dl (8.5-10.1) Magnesium Level 1.9 mg/dl (1.8-2.4) Micro Results: Item Value Date Time Gram Stain - Final Resulted 02/11/17 2303 Abscess Hip , Right Gram Stain - Final Resulted 02/11/17 2303 Abscess Hip , Right Gram Stain - Final Resulted 02/11/17 0000 Joint Fluid/Space (Synovial) Hip , Right Recent Pertinent Medications * VANC 2 grams (~15mg/kg) IV pre-op x 1 & post-op x 1 dose Assessment & Plan 1. VANC-IV * Estimated p'kinetics: Vd~0.7L/kg, Ke~0.0715hr-1, T1/2~9.5 hrs * VANC 2g IV preop & post-op x 1 as above. Last dose * MAINTENANCE DOSE: Vanc 2000mg (~15mg/kg) IV every 12 hours. * VANC Goal trough level estimate: between 15 - 20 mcg/mL. * VANC trough level @ Css prior to 02/13 1200 dose. 2. ZOSYN-IV: 4.5grams IV x 1, then q 8 hours CI. Using 4.5 gram dose for increased BSA (not obese). Pharmacy will continue to follow and will adjust dose/frequency as necessary. Thank you
[2017-02-12] MEDS ORDERED: PIPERACILL/TAZOBAC IV 4.5 GM in DEXTROSE 5% 100ML IV ONE (11:15)
[2017-02-12] MEDS: VANCOMYCIN INJ 2,000 MG in SODIUM CHLORIDE 0.9% 500ML 500 ML IV SCH (13:17)
--- NOTE | 2017-02-12 17:52 | Medical Consult ---
Consultation Date of Consultation: Feb 12, 2017. Attending Physician: Mick Slaughter M.D. Reason for Consultation: Postop infected hip History of Present Illness 56-year-old male with history of remote right total hip arthroplasty, with multiple surgeries over the years for revision and infection, now presents with pain, swelling, erythema with finding of abscess of right hip. Has now undergone surgery with debridement and drainage of abscess, removal of some hardware, and placement of antibiotic beads. Operative Gram stains negative for organisms, cultures are pending. Patient currently being treated with vancomycin and Zosyn. Has been afebrile. Offers no new complaints except for expected postoperative pain. Tolerating antibiotics without apparent difficulty Past Medical/Surgical History Medical Problems: (1) Cellulitis of right lower extremity Status: Acute (2) Depressive Disorder Nec Status: Chronic (3) Migraine Unspecified W/O Intract Mgrn W/O Status Migrainosus Status: Chronic (4) Personal History Of Peptic Ulcer Disease Status: Chronic (5) [place] Hear Loss Nos Status: Chronic Medical Problems: (1) Depressive Disorder Nec (2) Erectile dysfunction (3) GERD (gastroesophageal reflux disease) (4) HTN (hypertension) (5) Hypothyroidism (6) Iron deficiency anemia (7) Migraine Unspecified W/O Intract Mgrn W/O Status Migrainosus (8) Personal History Of Peptic Ulcer Disease (9) Prosthetic hip infection (10) [place] Hear Loss Nos (11) Septicemia Nos Surgical Problems: (1) H/O colonoscopy (2) H/O cystoscopy (3) H/O esophagogastroduodenoscopy (4) History of hip surgery Social History Problems: (1) Migraine Unspecified W/O Intract Mgrn W/O Status Migrainosus Family History Hypertension Social History Smoking Status: Never Smoker Marital Status: Housing Status: lives with significant other Occupation Status: employed Allergies Coded Allergies: NSAIDs (Verified Adverse Reaction, Severe, KIDNEY FAILURE, 02/11/17) Current Inpatient Medications Current Inpatient Medications Medications (Trade) Dose Ordered Sig/Patricia Route Start Time Stop Time Status Last Admin Dose Admin Calcium/Vitamin D (Caltrate Plus Tab) 1 tab DAILY PO 02/12/17 09:00 03/14/17 08:59 02/12/17 09:20 1 TAB Cyclobenzaprine HCl (Flexeril Tab) 10 mg BID PRN PO 02/11/17 23:00 03/13/17 22:59 Levothyroxine Sodium (Synthroid Tab) 100 mcg DAILYBB PO 02/12/17 06:00 03/14/17 05:59 02/12/17 05:40 100 MCG Metoprolol Succinate (Toprol Xl Tab) 50 mg DAILY PO 02/12/17 09:00 03/14/17 08:59 02/12/17 09:20 50 MG Multivitamins/ Minerals (Multivitamin W/ Minerals Tab) 1 tab DAILY PO 02/12/17 09:00 03/14/17 08:59 02/12/17 09:20 1 TAB Nifedipine (Procardia Xl Tab) 30 mg DAILY PO 02/12/17 09:00 03/14/17 08:59 02/12/17 09:20 30 MG Sumatriptan Succinate (Imitrex Tab) 100 mg UD PRN PO 02/11/17 23:00 03/13/17 22:59 Tamsulosin HCl (Flomax Cap) 0.4 mg DAILY PO 02/12/17 09:00 03/14/17 08:59 02/12/17 09:19 0.4 MG Venlafaxine HCl (effeXOR EXTENDED REL CAP) 300 mg DAILY PO 02/12/17 09:00 03/14/17 08:59 02/12/17 09:19 300 MG Oxycodone HCl (Roxicodone Immediate Rel Tab) 1-2 TABS FOR PAIN 1 TABLET ... Q4H PRN PO 02/11/17 23:00 02/25/17 22:59 02/12/17 01:34 10 MG Oxycodone HCl (Oxycontin Tab) 10 mg Q12 PO 02/12/17 09:00 02/26/17 08:59 02/12/17 09:24 10 MG Morphine Sulfate (MoRPHine SULFATE INJ) 2 mg Q2H PRN IV 02/11/17 23:00 02/25/17 22:59 Acetaminophen (Tylenol Tab) 1,000 mg Q8H PO 02/12/17 01:00 03/14/17 00:59 Magnesium Hydroxide (Milk Of Magnesia Susp) 30 ml Q6H PRN PO 02/11/17 23:00 03/13/17 22:59 Bisacodyl (Dulcolax Supp) 10 mg DAILY PRN AK 02/11/17 23:00 03/13/17 22:59 Sodium Biphosphate/ Sodium Phosphate (Fleet Enema) 132 ml DAILY PRN AK 02/11/17 23:00 03/13/17 22:59 Docusate Sodium (coLACE CAP) 100 mg BID PO 02/12/17 09:00 03/14/17 08:59 02/12/17 09:20 100 MG Diphenhydramine HCl (Benadryl Cap) 25 mg Q8H PRN PO 02/11/17 23:00 03/13/17 22:59 Zolpidem Tartrate (Ambien Tab) 5 mg HSZ PRN PO 02/11/17 23:00 03/13/17 22:59 Multivitamins (Multivitamin Tab) 1 tab QAM PO 02/12/17 09:00 03/14/17 08:59 02/12/17 09:19 1 TAB Ondansetron HCl (Zofran Inj) 4 mg Q6H PRN IV 02/11/17 23:00 03/13/17 22:59 Metoclopramide HCl (Reglan Inj) 10 mg Q6H PRN IV 02/11/17 23:00 03/13/17 22:59 02/12/17 16:17 10 MG Pantoprazole Sodium (Protonix Tab) 40 mg QAM PO 02/12/17 09:00 03/14/17 08:59 02/12/17 09:19 40 MG Morphine Sulfate (MoRPHine SULFATE INJ) 4 mg Q2H PRN IV 02/12/17 01:30 02/26/17 01:14 Aspirin (Ecotrin Tab) 81 mg BID PO 02/12/17 09:00 03/14/17 08:59 02/12/17 09:21 81 MG Sodium Chloride 1,000 ml @ 125 mls/hr Q8H IV 02/12/17 09:45 03/14/17 09:44 02/12/17 09:54 125 MLS/HR Vancomycin HCl (Consult) 1 ea UD PRN N/A 02/12/17 10:29 03/14/17 10:28 Piperacillin Sod/ Tazobactam Sod (Consult) 1 ea UD PRN N/A 02/12/17 10:30 03/14/17 10:29 Vancomycin HCl 2000 mg/Sodium Chloride 540 ml @ 200 mls/hr Q12H IV 02/12/17 12:00 02/22/17 11:59 02/12/17 13:17 200 MLS/HR Piperacillin Sod/ Tazobactam Sod 4.5 gm/Dextrose 120 ml @ 30 mls/hr Q8@0200,1000,1800 IV 02/12/17 18:00 02/22/17 17:59 Review of Systems all systems were reviewed and are negative except as per HPI Physical Exam Date Time Temp Pulse Resp B/P (MAP) Pulse Ox O2 Delivery O2 Flow Rate FiO2 02/12/17 15:02 37.0 76 17 119/68 (85) 92 Room Air 02/12/17 12:14 36.8 78 17 127/75 (92) 92 Room Air 02/12/17 08:13 Room Air 02/12/17 06:47 36.8 72 20 129/79 (96) 93 Room Air 02/12/17 03:30 36.6 85 16 118/77 (91) 95 Room Air 02/12/17 02:30 36.6 82 18 120/76 (91) 96 Room Air 02/12/17 01:30 36.6 79 18 123/78 (93) 93 Room Air 02/12/17 01:00 36.7 72 18 116/74 (88) 95 Room Air 02/12/17 00:30 36.4 81 12 132/77 (95) 02/12/17 00:30 Room Air 02/12/17 00:30 95 Room Air 02/12/17 00:10 36.5 80 12 112/69 (72) 94 Room Air 02/12/17 00:00 80 12 110/60 (70) 92 Room Air 02/11/17 23:50 80 12 100/63 (71) 97 Room Air 02/11/17 23:40 86 9 100/62 (67) 95 Room Air 02/11/17 23:30 78 15 109/64 (68) 93 Room Air 02/11/17 23:20 81 16 103/63 (71) 92 Room Air 02/11/17 23:10 86 10 112/73 (81) 97 Oxymask 5 02/11/17 23:00 93 15 123/75 (89) 98 Oxymask 5 02/11/17 22:51 36.7 95 8 105/81 (87) 92 Oxymask 5 General Appearance: WD/WN, no apparent distress Head: normocephalic, atraumatic Eyes: normal inspection, EOMI, sclerae normal ENT: normal ENT inspection, hearing grossly normal, pharynx normal Neck: supple, no adenopathy, thyroid normal, trachea midline Respiratory/Chest: chest non-tender, lungs clear, normal breath sounds, no respiratory distress Cardiovascular: regular rate, rhythm, no gallop, no murmur Abdomen/GI: normal bowel sounds, non tender, soft, no organomegaly, no pulsatile mass Back: normal inspection, no CVA tenderness Extremities/Musculoskelatal: no calf tenderness, normal capillary refill, non- tender Neurologic/Psych: alert, oriented x 3 Skin: normal color, warm/dry, no rash, + pertinent finding ( surgical dressing in place right hip) Lymphatic: no adenopathy Laboratory Results Date/Time Source Procedure Growth Status 02/11/17 23:03 Abscess Hip , Right Gram Stain - Final Resulted 02/11/17 23:03 Abscess Hip , Right Bacterial Culture - Preliminary NO GROWTH TO DATE. Resulted 02/11/17 23:03 Abscess Hip , Right Gram Stain - Final Resulted 02/11/17 23:03 Abscess Hip , Right Bacterial Culture - Preliminary NO GROWTH TO DATE. Resulted Last 24 Hours Test 02/12/17 01:40 02/12/17 02:47 02/12/17 09:45 White Blood Count 13.12 K/uL Red Blood Count 3.96 M/uL Hemoglobin 10.0 g/dL Hematocrit 31.0 % Mean Corpuscular Volume 78.3 fL Mean Corpuscular Hemoglobin 25.3 pg Mean Corpuscular Hemoglobin Concent 32.3 g/dl RDW Standard Deviation 45.2 fL RDW Coefficient of Variation 15.7 % Platelet Count 412 K/uL Mean Platelet Volume 8.9 fL Sodium Level 138 mmol/L 138 mmol/L Potassium Level 6.0 mmol/L 4.6 mmol/L Chloride Level 108 mmol/L 107 mmol/L Carbon Dioxide Level 25 mmol/L 26 mmol/L Anion Gap 5.0 mmol/L 5.0 mmol/L Blood Urea Nitrogen 22 mg/dl 23 mg/dl Creatinine 1.81 mg/dl 1.51 mg/dl Est Creatinine Clear Calc Drug Dose 67.9 ml/min 81.3 ml/min Estimated GFR () 47.4 59.0 Estimated GFR (Non- 40.9 50.9 BUN/Creatinine Ratio 12.0 15.5 Random Glucose 149 mg/dl 148 mg/dl Calcium Level 8.0 mg/dl 7.9 mg/dl Magnesium Level 1.9 mg/dl CHEST 2 VIEWS ROUTINE HISTORY: Preop. Right Hip Trochanteric Bursa Abscess COMPARISON: Chest 01/22/2015. FINDINGS: The lungs are clear. The heart is normal in size. Postoperative changes at the right clavicle. No pleural effusions. No pneumothorax. IMPRESSION: No acute process. Electronically signed by: Andrew Bullock M.D. 02/10/2017 3:26 PM Dictated Date/Time: 02/10/2017 3:26 PM T Assessment & Plan 56-year-old male with history of hypothyroidism and hypertension, with multiple previous right hip surgeries, now presents with deep infection of right hip, now status post debridement and poly exchange. Operative cultures are pending. Vancomycin appropriate therapy pending final operative cultures and sensitivities. Will likely require prolonged i.e. 6-8 weeks of IV antibiotics, will discuss with all involved.
[2017-02-12] MEDS: PIPERACILL/TAZOBAC IV 4.5 GM in DEXTROSE 5% 100ML IV SCH (18:07)
[2017-02-13] VITALS (16 sets, daily range): BP systolic 102–122; BP diastolic 60–75; PULSE 77–110; TEMP 36.7–36.9; O2SAT 91–96
[2017-02-13] MEDS: VANCOMYCIN INJ 2,000 MG in SODIUM CHLORIDE 0.9% 500ML 500 ML IV SCH ×2 (00:09→13:21)
[2017-02-13] MEDS: ACETAMINOPHEN 500 MG TAB PO SCH ×3 (00:09→17:00)
[2017-02-13] MEDS: PIPERACILL/TAZOBAC IV 4.5 GM in DEXTROSE 5% 100ML IV SCH ×3 (01:54→18:30)
[2017-02-13] MEDS: SODIUM CHLORIDE 0.9% 1000ML 1,000 ML IV SCH (01:54)
[2017-02-13] MEDS: LEVOTHYROXINE 100 MCG TAB PO SCH (06:10)
[2017-02-13 07:32] LABS: HEMATOCRIT 22.8 % (42-52); MEAN CELL VOLUME 78.1 fL (80-100); MEAN CORPUSCULAR HEMOGLOBIN 25.3 pg (25-34); MEAN CORPUSCULAR HGB CONC 32.5 g/dl (32-36); MEAN PLATELET VOLUME 8.3 fL (7.4-10.4); PLATELET COUNT 292 K/uL (130-400); RED BLOOD COUNT 2.92 M/uL (4.7-6.1); WHITE BLOOD COUNT 5.64 K/uL (4.8-10.8)
[2017-02-13] MEDS: OXYCODONE HCL IR 5 MG TAB (IMMEDIATE RELEASE) PO PRN ×2 (07:36→15:55)
[2017-02-13 08:11] LABS: BUN/CREATININE RATIO 14.8 (10-20); CALCIUM 7.9 mg/dl (8.5-10.1); CREATININE 1.35 mg/dl (0.60-1.40); POTASSIUM 3.9 mmol/L (3.5-5.1)
[2017-02-13] MEDS: CALCIUM 600MG + VIT D 400 IU TAB PO SCH (09:25)
[2017-02-13] MEDS: METOPROLOL SUCC 50MG EXT REL TAB PO SCH (09:25)
[2017-02-13] MEDS: OXYCODONE HCL 10 MG TABCR (OXYCONTIN) PO SCH ×2 (09:25→22:00)
[2017-02-13] MEDS: NIFEdipine 30 MG CR TAB PO SCH (09:25)
[2017-02-13] MEDS: VENLAFAXINE HCL XR 150 MG CAPXR PO SCH (09:26)
[2017-02-13] MEDS: PANTOprazole SOD 40 MG TAB PO SCH (09:26)
[2017-02-13] MEDS: DOCUSATE SODIUM 100 MG CAP PO SCH ×2 (09:26→22:00)
[2017-02-13] MEDS: CEROVITE ADV FORMULA TAB PO SCH (09:26)
[2017-02-13] MEDS: MULTIVITAMIN TAB PO SCH (09:26)
[2017-02-13] MEDS: TAMSULOSIN HCL 0.4 MG CAP PO SCH (09:27)
[2017-02-13] MEDS: ASPIRIN 81 MG ECTAB PO SCH ×2 (09:27→22:00)
--- NOTE | 2017-02-13 11:09 | Orthopedic Progress Note ---
Orthopedic Progress Note Date of Service Feb 13, 2017. Subjective Post OP Day: 2 Reports: feeling well, light headedness, pain controlled w PO medications, Denies: complaints, chest pain, SOB, nausea / vomiting, calf pain Additional Notes: HGB 7.4 per nursing, 1 of the hemovacs not holding suction and states patient took it apart Objective calves soft nontender, N/V intact, capillary refill less than 2 sec., dressing C /D/I, A&O x3, toes mobile Date Time Temp Pulse Resp B/P (MAP) Pulse Ox O2 Delivery O2 Flow Rate FiO2 02/13/17 10:53 110 20 118/73 (88) 96 02/13/17 08:00 Room Air 02/13/17 07:02 36.7 87 16 112/71 (85) 91 Room Air 02/13/17 00:15 Room Air 02/12/17 23:47 37.0 85 18 122/73 (89) 92 Room Air 02/12/17 20:00 92 Room Air 02/12/17 15:50 Room Air 02/12/17 15:02 37.0 76 17 119/68 (85) 92 Room Air 02/12/17 12:14 36.8 78 17 127/75 (92) 92 Room Air Laboratory Results 24 Hours: Test 02/13/17 06:52 Hematocrit 22.8 % Hemoglobin 7.4 g/dL Assessment & Plan Assessment: POD #2 Right hip I&D NANCY and ant thigh abcess with debridement and placement antibx beads. Post op anemia Plan: PT/ OT - WBAT w walker DVT proph- ASA D/C planning- Home likely w HH and IV antibx, SS aware. As per medicine Gram stain many WBC's, no organisms, Cultures pending. Per ID input, on vanco and zosyn for now. Anemia Transfuse 2 units today per medicine. Pull non functioning drain and leave others in tact, dressing change. PICC consent today, hopefully placement.
--- NOTE | 2017-02-13 11:26 | Progress Note ---
Medicine Progress Note Date & Time of Visit: Feb 13, 2017 at 11:19. Subjective seen sitting in bedside chair states he feels better overall just a little lightheaded when standing denies chest pain, dyspnea, nausea, abdominal pain no other symptoms Objective Last 8 Hrs Date Time Temp Pulse Resp B/P (MAP) Pulse Ox O2 Delivery O2 Flow Rate FiO2 02/13/17 10:53 110 20 118/73 (88) 96 02/13/17 08:00 Room Air 02/13/17 07:02 36.7 87 16 112/71 (85) 91 Room Air Physical Exam: General- oriented x 3, not in distress, speaks in sentences with no effort Eyes- anicteric Neck- no JVD Lungs- clear to auscultation bilaterally, no rales/wheezes Heart- regular rhythm; no murmur, no gallop, normal rate Abdomen- normal bowel sounds, soft, nontender Extremities- no pretibial edema, no calf tenderness; peripheral pulses intact Neuro- alert, oriented x 3; no gross focal deficits Skin- warm & dry Laboratory Results: Last 24 Hours Test 02/13/17 06:52 White Blood Count 5.64 K/uL Red Blood Count 2.92 M/uL Hemoglobin 7.4 g/dL Hematocrit 22.8 % Mean Corpuscular Volume 78.1 fL Mean Corpuscular Hemoglobin 25.3 pg Mean Corpuscular Hemoglobin Concent 32.5 g/dl RDW Standard Deviation 46.2 fL RDW Coefficient of Variation 16.1 % Platelet Count 292 K/uL Mean Platelet Volume 8.3 fL Sodium Level 138 mmol/L Potassium Level 3.9 mmol/L Chloride Level 104 mmol/L Carbon Dioxide Level 27 mmol/L Anion Gap 7.0 mmol/L Blood Urea Nitrogen 20 mg/dl Creatinine 1.35 mg/dl Est Creatinine Clear Calc Drug Dose 91.0 ml/min Estimated GFR () 67.5 Estimated GFR (Non- 58.3 BUN/Creatinine Ratio 14.8 Random Glucose 97 mg/dl Calcium Level 7.9 mg/dl Assessment & Plan 56 year old male with history of HTN, Hypothyroidism, BPH, GERD, and other problems noted below presenting with right hip surgery. RIGHT HIP ABSCESS S/P I&D, DEBRIDEMENT, ANTIBIOTIC BEAD PLACEMENT - post op day 2 - afebrile, no leukocytosis - cultures: R hip abscess: negative so far R joint fluid: negative so far on Day 2 Vancomycin and Zosyn ff up cultures appreciate Dr. Hernandez's recommendations ACUTE RENAL FAILURE - likely pre renal - crea 1.4--> 1.8---> 1.5 crea back to baselined - d/c IV fluids - hold HCTZ for now - no NSAIDs, contrasts - monitor crea daily HYPERKALEMIA - resolved EKG ok ACUTE BLOOD LOSS ANEMIA - Hg 7.4 another 2 units of PRBC ordered monitor Hg HYPERTENSION - BP on the lower side, patient lightheaded hold HCTZ and Nifedipine for now - continue Metoprolol - monitor BP BPH - continue Tamsulosin DVT prophylaxis per Ortho Thank you for this consultation. We will follow the patient with you during their hospital stay. You can reach a member of the [facility] Hospitalist Team 15/11 via pager @ . Current Inpatient Medications: Current Inpatient Medications Medications (Trade) Dose Ordered Sig/Patricia Route Start Time Stop Time Status Last Admin Dose Admin Calcium/Vitamin D (Caltrate Plus Tab) 1 tab DAILY PO 02/12/17 09:00 03/14/17 08:59 02/13/17 09:25 1 TAB Cyclobenzaprine HCl (Flexeril Tab) 10 mg BID PRN PO 02/11/17 23:00 03/13/17 22:59 Levothyroxine Sodium (Synthroid Tab) 100 mcg DAILYBB PO 02/12/17 06:00 03/14/17 05:59 02/13/17 06:10 100 MCG Metoprolol Succinate (Toprol Xl Tab) 50 mg DAILY PO 02/12/17 09:00 03/14/17 08:59 02/13/17 09:25 50 MG Multivitamins/ Minerals (Multivitamin W/ Minerals Tab) 1 tab DAILY PO 02/12/17 09:00 03/14/17 08:59 02/13/17 09:26 1 TAB Nifedipine (Procardia Xl Tab) 30 mg DAILY PO 02/12/17 09:00 03/14/17 08:59 02/13/17 09:25 30 MG Sumatriptan Succinate (Imitrex Tab) 100 mg UD PRN PO 02/11/17 23:00 03/13/17 22:59 Tamsulosin HCl (Flomax Cap) 0.4 mg DAILY PO 02/12/17 09:00 03/14/17 08:59 02/13/17 09:27 0.4 MG Venlafaxine HCl (effeXOR EXTENDED REL CAP) 300 mg DAILY PO 02/12/17 09:00 03/14/17 08:59 02/13/17 09:26 300 MG Oxycodone HCl (Roxicodone Immediate Rel Tab) 1-2 TABS FOR PAIN 1 TABLET ... Q4H PRN PO 02/11/17 23:00 02/25/17 22:59 02/13/17 07:36 10 MG Oxycodone HCl (Oxycontin Tab) 10 mg Q12 PO 02/12/17 09:00 02/26/17 08:59 02/13/17 09:25 10 MG Morphine Sulfate (MoRPHine SULFATE INJ) 2 mg Q2H PRN IV 02/11/17 23:00 02/25/17 22:59 Acetaminophen (Tylenol Tab) 1,000 mg Q8H PO 02/12/17 01:00 03/14/17 00:59 Magnesium Hydroxide (Milk Of Magnesia Susp) 30 ml Q6H PRN PO 02/11/17 23:00 03/13/17 22:59 Bisacodyl (Dulcolax Supp) 10 mg DAILY PRN MS 02/11/17 23:00 03/13/17 22:59 Sodium Biphosphate/ Sodium Phosphate (Fleet Enema) 132 ml DAILY PRN MS 02/11/17 23:00 03/13/17 22:59 Docusate Sodium (coLACE CAP) 100 mg BID PO 02/12/17 09:00 03/14/17 08:59 02/13/17 09:26 100 MG Diphenhydramine HCl (Benadryl Cap) 25 mg Q8H PRN PO 02/11/17 23:00 03/13/17 22:59 Zolpidem Tartrate (Ambien Tab) 5 mg HSZ PRN PO 02/11/17 23:00 03/13/17 22:59 Multivitamins (Multivitamin Tab) 1 tab QAM PO 02/12/17 09:00 03/14/17 08:59 02/13/17 09:26 1 TAB Ondansetron HCl (Zofran Inj) 4 mg Q6H PRN IV 02/11/17 23:00 03/13/17 22:59 Metoclopramide HCl (Reglan Inj) 10 mg Q6H PRN IV 02/11/17 23:00 03/13/17 22:59 02/12/17 16:17 10 MG Pantoprazole Sodium (Protonix Tab) 40 mg QAM PO 02/12/17 09:00 03/14/17 08:59 02/13/17 09:26 40 MG Morphine Sulfate (MoRPHine SULFATE INJ) 4 mg Q2H PRN IV 02/12/17 01:30 02/26/17 01:14 Aspirin (Ecotrin Tab) 81 mg BID PO 02/12/17 09:00 03/14/17 08:59 02/13/17 09:27 81 MG Vancomycin HCl (Consult) 1 ea UD PRN N/A 02/12/17 10:29 03/14/17 10:28 Piperacillin Sod/ Tazobactam Sod (Consult) 1 ea UD PRN N/A 02/12/17 10:30 03/14/17 10:29 Vancomycin HCl 2000 mg/Sodium Chloride 540 ml @ 200 mls/hr Q12H IV 02/12/17 12:00 02/22/17 11:59 02/13/17 00:09 200 MLS/HR Piperacillin Sod/ Tazobactam Sod 4.5 gm/Dextrose 120 ml @ 30 mls/hr Q8@0200,1000,1800 IV 02/12/17 18:00 02/22/17 17:59 02/13/17 10:25 30 MLS/HR
[2017-02-13] MEDS ORDERED: VANCOMYCIN TROUGH ONE (11:30)
[2017-02-13] MEDS ORDERED: NURSING VERBAL MED ORDER ONE (23:15)
[2017-02-14] MEDS: VANCOMYCIN INJ 2,000 MG in SODIUM CHLORIDE 0.9% 500ML 500 ML IV SCH ×3 (00:31→23:52)
[2017-02-14] MEDS: ACETAMINOPHEN 500 MG TAB PO SCH ×3 (00:32→16:30)
[2017-02-14] MEDS: PIPERACILL/TAZOBAC IV 4.5 GM in DEXTROSE 5% 100ML IV SCH ×3 (02:04→18:31)
[2017-02-14] MEDS: LEVOTHYROXINE 100 MCG TAB PO SCH (05:25)
[2017-02-14 06:14] LABS: HEMATOCRIT 23.7 % (42-52); MEAN CORPUSCULAR HGB CONC 33.3 g/dl (32-36); MEAN PLATELET VOLUME 8.2 fL (7.4-10.4); PLATELET COUNT 256 K/uL (130-400); RED BLOOD COUNT 3.04 M/uL (4.7-6.1); WHITE BLOOD COUNT 4.92 K/uL (4.8-10.8)
[2017-02-14 06:41] LABS: BUN/CREATININE RATIO 11.6 (10-20); CALCIUM 8.1 mg/dl (8.5-10.1); CREATININE 1.17 mg/dl (0.60-1.40); POTASSIUM 3.7 mmol/L (3.5-5.1)
[2017-02-14 06:52] VITALS: BP 112/68; PULSE 80; TEMP 36.8; O2SAT 96
[2017-02-14 07:04] LABS: ISTAT CREATININE 1.4 mg/dl (0.6-1.3); ISTAT HEMOGLOBIN 9.5 g/dl (14.0-18.0); ISTAT IONIZED CALCIUM 1.14 mmol/l (1.12-1.32)
--- NOTE | 2017-02-14 08:22 | Anesthesiology Progress Note ---
Anesthesia Post Op Note Date & Time Feb 14, 2017 at 08:21 Vital Signs Pain Intensity: 0.0 Vital Signs Past 12 Hours Date Time Temp Pulse Resp B/P (MAP) Pulse Ox O2 Delivery O2 Flow Rate FiO2 02/14/17 06:52 36.8 80 19 112/68 (83) 96 Room Air 02/14/17 00:40 Room Air 02/13/17 23:10 36.9 88 20 110/66 (81) 92 Room Air Notes Mental Status: alert / awake / arousable Pt Amnestic to Procedure: Yes Nausea / Vomiting: adequately controlled Pain: adequately controlled Airway Patency, RR, SpO2: stable & adequate BP & HR: stable & adequate Hydration State: stable & adequate
[2017-02-14] MEDS: OXYCODONE HCL 10 MG TABCR (OXYCONTIN) PO SCH ×2 (08:24→21:22)
[2017-02-14] MEDS: PANTOprazole SOD 40 MG TAB PO SCH (08:25)
[2017-02-14] MEDS: VENLAFAXINE HCL XR 150 MG CAPXR PO SCH (08:25)
[2017-02-14] MEDS: CEROVITE ADV FORMULA TAB PO SCH (08:25)
[2017-02-14] MEDS: METOPROLOL SUCC 50MG EXT REL TAB PO SCH (08:25)
[2017-02-14] MEDS: DOCUSATE SODIUM 100 MG CAP PO SCH ×2 (08:26→21:23)
[2017-02-14] MEDS: ASPIRIN 81 MG ECTAB PO SCH ×2 (08:26→21:22)
[2017-02-14] MEDS: TAMSULOSIN HCL 0.4 MG CAP PO SCH (08:26)
[2017-02-14] MEDS: CALCIUM 600MG + VIT D 400 IU TAB PO SCH (08:26)
[2017-02-14] MEDS: MULTIVITAMIN TAB PO SCH (08:26)
--- NOTE | 2017-02-14 08:37 | Orthopedic Progress Note ---
Orthopedic Progress Note Date of Service Feb 14, 2017. Subjective Post OP Day: 3 Reports: feeling well, pain controlled w PO medications, Denies: complaints, chest pain, SOB, nausea / vomiting, calf pain Additional Notes: Drains not holding suction, output "0" last shift for both. Objective calves soft nontender, N/V intact, capillary refill less than 2 sec., incision C /D/I, A&O x3, toes mobile Date Time Temp Pulse Resp B/P (MAP) Pulse Ox O2 Delivery O2 Flow Rate FiO2 02/14/17 06:52 36.8 80 19 112/68 (83) 96 Room Air 02/14/17 00:40 Room Air 02/13/17 23:10 36.9 88 20 110/66 (81) 92 Room Air 02/13/17 17:15 36.8 82 18 122/75 94 02/13/17 16:15 36.9 77 18 106/66 92 02/13/17 15:19 36.7 92 18 115/68 (84) 93 Room Air 02/13/17 15:15 Room Air 02/13/17 15:15 36.7 92 18 115/68 93 02/13/17 14:29 36.8 84 18 109/68 93 02/13/17 14:27 36.8 82 18 109/68 92 02/13/17 14:18 36.8 82 19 102/64 91 02/13/17 13:21 36.8 89 16 108/65 92 02/13/17 12:43 36.8 85 19 103/63 94 02/13/17 12:15 36.8 88 18 117/72 92 02/13/17 12:00 36.8 88 14 113/60 92 02/13/17 11:40 36.9 110 18 110/72 93 02/13/17 10:53 110 20 118/73 (88) 96 Laboratory Results 24 Hours: Test 02/14/17 05:53 Hematocrit 23.7 % Hemoglobin 7.9 g/dL Assessment & Plan Assessment: POD #3 Right hip I&D NANCY and ant thigh abcess with debridement and placement antibx beads. Post op anemia, Plan: PT/ OT - WBAT w walker DVT proph- ASA D/C planning- Home likely w HH and IV antibx, SS aware. PICC placed. As per medicine Gram stain many WBC's, no organisms, Final Cultures pending. Per ID input, on vanco and zosyn for now, await final input for poss D/C Tuesday. Anemia Transfuse 2 units yesterday, HGB 7.9 this AM Pull drains.
[2017-02-14 15:50] VITALS: BP 125/72; PULSE 86; TEMP 36.9; O2SAT 97
[2017-02-14] MEDS: OXYCODONE HCL IR 5 MG TAB (IMMEDIATE RELEASE) PO PRN (15:58)
--- NOTE | 2017-02-14 18:55 | Progress Note ---
Medicine Progress Note Date & Time of Visit: Feb 14, 2017 at 18:52. Subjective states he feels fine overall feels better today no dizziness, chest pain, dyspnea pain well controlled no other symptoms Objective Last 8 Hrs Date Time Temp Pulse Resp B/P (MAP) Pulse Ox O2 Delivery O2 Flow Rate FiO2 02/14/17 15:50 36.9 86 18 125/72 (89) 97 Room Air Physical Exam: General- oriented x 3, not in distress, speaks in sentences with no effort Eyes- anicteric Neck- no JVD Lungs- clear to auscultation bilaterally Heart- regular rhythm; no murmur, normal rate Abdomen- normal bowel sounds, soft, nontender Extremities- no pretibial edema, no calf tenderness; peripheral pulses intact Neuro- alert, oriented x 3; no gross focal deficits Skin- warm & dry Laboratory Results: Last 24 Hours Test 02/14/17 05:53 White Blood Count 4.92 K/uL Red Blood Count 3.04 M/uL Hemoglobin 7.9 g/dL Hematocrit 23.7 % Mean Corpuscular Volume 78.0 fL Mean Corpuscular Hemoglobin 26.0 pg Mean Corpuscular Hemoglobin Concent 33.3 g/dl RDW Standard Deviation 46.3 fL RDW Coefficient of Variation 16.2 % Platelet Count 256 K/uL Mean Platelet Volume 8.2 fL Nucleated RBC Absolute Count (auto) 0.02 K/uL Nucleated Red Blood Cells % 0.3 % Sodium Level 137 mmol/L Potassium Level 3.7 mmol/L Chloride Level 105 mmol/L Carbon Dioxide Level 26 mmol/L Anion Gap 6.0 mmol/L Blood Urea Nitrogen 14 mg/dl Creatinine 1.17 mg/dl Est Creatinine Clear Calc Drug Dose 105.0 ml/min Estimated GFR () 80.3 Estimated GFR (Non- 69.3 BUN/Creatinine Ratio 11.6 Random Glucose 110 mg/dl Calcium Level 8.1 mg/dl Assessment & Plan 56 year old male with history of HTN, Hypothyroidism, BPH, GERD, and other problems noted below presenting with right hip surgery. RIGHT HIP ABSCESS S/P I&D, DEBRIDEMENT, ANTIBIOTIC BEAD PLACEMENT - post op day 3 - afebrile, no leukocytosis - cultures: R hip abscess: negative so far R joint fluid: negative so far on Day 3 Vancomycin and Zosyn ff up cultures awaiting Dr. Hernandez's input re: antibiotics ACUTE RENAL FAILURE - likely pre renal - crea 1.4--> 1.8---> 1.5 crea back to baseline - d/c IV fluids - hold HCTZ for now - no NSAIDs, contrasts - monitor crea daily HYPERKALEMIA - resolved EKG ok ACUTE BLOOD LOSS ANEMIA - s/p 4 units pRBC Hg 7.9 monitor Hg HYPERTENSION - BP on the lower side hold HCTZ and Nifedipine for now - continue Metoprolol - monitor BP BPH - continue Tamsulosin DVT prophylaxis per Ortho Thank you for this consultation. We will follow the patient with you during their hospital stay. You can reach a member of the [facility] Hospitalist Team 15/11 via pager @ . Current Inpatient Medications: Current Inpatient Medications Medications (Trade) Dose Ordered Sig/Patricia Route Start Time Stop Time Status Last Admin Dose Admin Calcium/Vitamin D (Caltrate Plus Tab) 1 tab DAILY PO 02/12/17 09:00 03/14/17 08:59 02/14/17 08:26 1 TAB Cyclobenzaprine HCl (Flexeril Tab) 10 mg BID PRN PO 02/11/17 23:00 03/13/17 22:59 Levothyroxine Sodium (Synthroid Tab) 100 mcg DAILYBB PO 02/12/17 06:00 03/14/17 05:59 02/14/17 05:25 100 MCG Metoprolol Succinate (Toprol Xl Tab) 50 mg DAILY PO 02/12/17 09:00 03/14/17 08:59 02/14/17 08:25 50 MG Multivitamins/ Minerals (Multivitamin W/ Minerals Tab) 1 tab DAILY PO 02/12/17 09:00 03/14/17 08:59 02/14/17 08:25 1 TAB Sumatriptan Succinate (Imitrex Tab) 100 mg UD PRN PO 02/11/17 23:00 03/13/17 22:59 Tamsulosin HCl (Flomax Cap) 0.4 mg DAILY PO 02/12/17 09:00 03/14/17 08:59 02/14/17 08:26 0.4 MG Venlafaxine HCl (effeXOR EXTENDED REL CAP) 300 mg DAILY PO 02/12/17 09:00 03/14/17 08:59 02/14/17 08:25 300 MG Oxycodone HCl (Roxicodone Immediate Rel Tab) 1-2 TABS FOR PAIN 1 TABLET ... Q4H PRN PO 02/11/17 23:00 02/25/17 22:59 02/14/17 15:58 10 MG Oxycodone HCl (Oxycontin Tab) 10 mg Q12 PO 02/12/17 09:00 02/26/17 08:59 02/14/17 08:24 10 MG Morphine Sulfate (MoRPHine SULFATE INJ) 2 mg Q2H PRN IV 02/11/17 23:00 02/25/17 22:59 Acetaminophen (Tylenol Tab) 1,000 mg Q8H PO 02/12/17 01:00 03/14/17 00:59 Magnesium Hydroxide (Milk Of Magnesia Susp) 30 ml Q6H PRN PO 02/11/17 23:00 03/13/17 22:59 Bisacodyl (Dulcolax Supp) 10 mg DAILY PRN DC 02/11/17 23:00 03/13/17 22:59 Sodium Biphosphate/ Sodium Phosphate (Fleet Enema) 132 ml DAILY PRN DC 02/11/17 23:00 03/13/17 22:59 Docusate Sodium (coLACE CAP) 100 mg BID PO 02/12/17 09:00 03/14/17 08:59 02/14/17 08:26 100 MG Diphenhydramine HCl (Benadryl Cap) 25 mg Q8H PRN PO 02/11/17 23:00 03/13/17 22:59 Zolpidem Tartrate (Ambien Tab) 5 mg HSZ PRN PO 02/11/17 23:00 03/13/17 22:59 Multivitamins (Multivitamin Tab) 1 tab QAM PO 02/12/17 09:00 03/14/17 08:59 02/14/17 08:26 1 TAB Ondansetron HCl (Zofran Inj) 4 mg Q6H PRN IV 02/11/17 23:00 03/13/17 22:59 Metoclopramide HCl (Reglan Inj) 10 mg Q6H PRN IV 02/11/17 23:00 03/13/17 22:59 02/12/17 16:17 10 MG Pantoprazole Sodium (Protonix Tab) 40 mg QAM PO 02/12/17 09:00 03/14/17 08:59 02/14/17 08:25 40 MG Morphine Sulfate (MoRPHine SULFATE INJ) 4 mg Q2H PRN IV 02/12/17 01:30 02/26/17 01:14 Aspirin (Ecotrin Tab) 81 mg BID PO 02/12/17 09:00 03/14/17 08:59 02/14/17 08:26 81 MG Vancomycin HCl (Consult) 1 ea UD PRN N/A 02/12/17 10:29 03/14/17 10:28 Piperacillin Sod/ Tazobactam Sod (Consult) 1 ea UD PRN N/A 02/12/17 10:30 03/14/17 10:29 Vancomycin HCl 2000 mg/Sodium Chloride 540 ml @ 200 mls/hr Q12H IV 02/12/17 12:00 02/22/17 11:59 02/14/17 12:41 200 MLS/HR Piperacillin Sod/ Tazobactam Sod 4.5 gm/Dextrose 120 ml @ 30 mls/hr Q8@0200,1000,1800 IV 02/12/17 18:00 02/22/17 17:59 02/14/17 18:31 30 MLS/HR Heparin Sodium (Porcine) (Heparin 10 Unit/ ml 5 ml Flush) 5 ml PRN PRN FLUSH 02/13/17 23:30 03/15/17 23:29 02/14/17 05:51 5 ML
[2017-02-14 20:03] VITALS: O2SAT 98
[2017-02-14 22:47] VITALS: BP 127/72; PULSE 79; TEMP 36.9; O2SAT 96
[2017-02-15] MEDS: ACETAMINOPHEN 500 MG TAB PO SCH ×3 (01:00→17:00)
[2017-02-15] MEDS: PIPERACILL/TAZOBAC IV 4.5 GM in DEXTROSE 5% 100ML IV SCH ×2 (02:00→09:18)
[2017-02-15] MEDS: LEVOTHYROXINE 100 MCG TAB PO SCH (06:10)
[2017-02-15 06:20] LABS: HEMATOCRIT 25.4 % (42-52); MEAN CELL VOLUME 78.6 fL (80-100); MEAN CORPUSCULAR HEMOGLOBIN 25.4 pg (25-34); MEAN CORPUSCULAR HGB CONC 32.3 g/dl (32-36); MEAN PLATELET VOLUME 8.2 fL (7.4-10.4); PLATELET COUNT 267 K/uL (130-400); RED BLOOD COUNT 3.23 M/uL (4.7-6.1); WHITE BLOOD COUNT 5.22 K/uL (4.8-10.8)
[2017-02-15 06:51] LABS: BUN/CREATININE RATIO 7.8 (10-20); CALCIUM 8.3 mg/dl (8.5-10.1); CREATININE 1.16 mg/dl (0.60-1.40); POTASSIUM 3.7 mmol/L (3.5-5.1)
[2017-02-15 07:27] VITALS: BP 148/84; PULSE 86; TEMP 36.8; O2SAT 98
[2017-02-15] MEDS: DOCUSATE SODIUM 100 MG CAP PO SCH ×2 (09:00→20:53)
[2017-02-15] MEDS: ASPIRIN 81 MG ECTAB PO SCH ×2 (09:16→20:53)
[2017-02-15] MEDS: TAMSULOSIN HCL 0.4 MG CAP PO SCH (09:16)
[2017-02-15] MEDS: VENLAFAXINE HCL XR 150 MG CAPXR PO SCH (09:17)
[2017-02-15] MEDS: CALCIUM 600MG + VIT D 400 IU TAB PO SCH (09:17)
[2017-02-15] MEDS: MULTIVITAMIN TAB PO SCH (09:17)
[2017-02-15] MEDS: METOPROLOL SUCC 50MG EXT REL TAB PO SCH (09:17)
[2017-02-15] MEDS: CEROVITE ADV FORMULA TAB PO SCH (09:17)
[2017-02-15] MEDS: PANTOprazole SOD 40 MG TAB PO SCH (09:17)
[2017-02-15] MEDS: OXYCODONE HCL 10 MG TABCR (OXYCONTIN) PO SCH ×2 (09:18→20:53)
[2017-02-15] MEDS ORDERED: VANCOMYCIN TROUGH ONE (11:30)
--- NOTE | 2017-02-15 12:34 | ORTHOPEDIC PROGRESS NOTE ---
DATE: 02/15/2017 SUBJECTIVE: The patient is a 56-year-old white male who underwent irrigation and debridement of a right thigh abscess as well as irrigation and debridement of right NANCY by Dr. Slaughter on 02/11/2017. Since that time, a PICC line has been placed and we have been waiting for culture results and continuing IV antibiotics per infectious disease team at [facility]. Currently, he is lying in bed and he states that he has been ambulating well and has no new complaints. Pain is controlled and denies shortness of breath, chest pain or lightheadedness. OBJECTIVE: EXTREMITIES: His 2 wounds appear benign at this time. He has got no overt drainage. He has got thigh swelling which is common for the surgery he has had, but is not tense and is essentially nontender on palpation. Calves are soft and nontender. Neurovascular is intact. GENERAL: He is alert and oriented x3. VITAL SIGNS: Stable. LABORATORY DATA: Hemoglobin came back today at 8.2, white count is 5.2. Current vancomycin trough is pending. 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 PLAN: Continue to follow cultures and await ID input for final antibiotic. He has been seen by case management and is being set up for home IV antibiotics at this time. Once final antibiotic choice has been made, we will plan on discharging him home with home health services but for now we will continue on PT protocol and IV antibiotics here in the hospital.
[2017-02-15] MEDS: VANCOMYCIN INJ 2,000 MG in SODIUM CHLORIDE 0.9% 500ML 500 ML IV SCH (12:44)
--- NOTE | 2017-02-15 13:48 | Pharmacy Progress Note ---
Pharmacy Abx Dose Short Note Date of Service Feb 15, 2017. Assessment & Plan Assessment 56 year old male receiving Vancomycin IV for treatment of Right hip abscess s/p I & D. Item Value Date Time Vancomycin Level Trough 17.2 mcg/ml 02/15/17 1147 Day # 5 of antimicrobial therapy. Goal trough level for bone/joint infection: 15 - 20 mcg/mL. Based on vanco trough level of 17.2, ok to continue vancomycin IV therapy pending ID input. Plan Vancomycin * Vancomycin (15mg/kg) 2 gm IV q 12 hours * No further levels ordered for now Pharmacy will continue to follow and will adjust dose/frequency as necessary. Thank you.
--- NOTE | 2017-02-15 14:51 | Infectious Disease Progress Nt ---
Progress Note Date of Service Feb 15, 2017. Subjective Pt evaluation today including: conversation w/ patient, physical exam, chart review, lab review, review of studies, conversation w/ nursing consultant, review of inpatient medication list No new complaints. Remains afebrile. Pain controlled. All Other Systems: Reviewed and Negative Medications Current Inpatient Medications Medications (Trade) Dose Ordered Sig/Patricia Route Start Time Stop Time Status Last Admin Dose Admin Calcium/Vitamin D (Caltrate Plus Tab) 1 tab DAILY PO 02/12/17 09:00 03/14/17 08:59 02/15/17 09:17 1 TAB Cyclobenzaprine HCl (Flexeril Tab) 10 mg BID PRN PO 02/11/17 23:00 03/13/17 22:59 Levothyroxine Sodium (Synthroid Tab) 100 mcg DAILYBB PO 02/12/17 06:00 03/14/17 05:59 02/15/17 06:10 100 MCG Metoprolol Succinate (Toprol Xl Tab) 50 mg DAILY PO 02/12/17 09:00 03/14/17 08:59 02/15/17 09:17 50 MG Multivitamins/ Minerals (Multivitamin W/ Minerals Tab) 1 tab DAILY PO 02/12/17 09:00 03/14/17 08:59 02/15/17 09:17 1 TAB Sumatriptan Succinate (Imitrex Tab) 100 mg UD PRN PO 02/11/17 23:00 03/13/17 22:59 Tamsulosin HCl (Flomax Cap) 0.4 mg DAILY PO 02/12/17 09:00 03/14/17 08:59 02/15/17 09:16 0.4 MG Venlafaxine HCl (effeXOR EXTENDED REL CAP) 300 mg DAILY PO 02/12/17 09:00 03/14/17 08:59 02/15/17 09:17 300 MG Oxycodone HCl (Roxicodone Immediate Rel Tab) 1-2 TABS FOR PAIN 1 TABLET ... Q4H PRN PO 02/11/17 23:00 02/25/17 22:59 02/14/17 15:58 10 MG Oxycodone HCl (Oxycontin Tab) 10 mg Q12 PO 02/12/17 09:00 02/26/17 08:59 02/15/17 09:18 10 MG Morphine Sulfate (MoRPHine SULFATE INJ) 2 mg Q2H PRN IV 02/11/17 23:00 02/25/17 22:59 Acetaminophen (Tylenol Tab) 1,000 mg Q8H PO 02/12/17 01:00 03/14/17 00:59 Magnesium Hydroxide (Milk Of Magnesia Susp) 30 ml Q6H PRN PO 02/11/17 23:00 03/13/17 22:59 Bisacodyl (Dulcolax Supp) 10 mg DAILY PRN NE 02/11/17 23:00 03/13/17 22:59 Sodium Biphosphate/ Sodium Phosphate (Fleet Enema) 132 ml DAILY PRN NE 02/11/17 23:00 03/13/17 22:59 Docusate Sodium (coLACE CAP) 100 mg BID PO 02/12/17 09:00 03/14/17 08:59 02/14/17 21:23 100 MG Diphenhydramine HCl (Benadryl Cap) 25 mg Q8H PRN PO 02/11/17 23:00 03/13/17 22:59 Zolpidem Tartrate (Ambien Tab) 5 mg HSZ PRN PO 02/11/17 23:00 03/13/17 22:59 Multivitamins (Multivitamin Tab) 1 tab QAM PO 02/12/17 09:00 03/14/17 08:59 02/15/17 09:17 1 TAB Ondansetron HCl (Zofran Inj) 4 mg Q6H PRN IV 02/11/17 23:00 03/13/17 22:59 Metoclopramide HCl (Reglan Inj) 10 mg Q6H PRN IV 02/11/17 23:00 03/13/17 22:59 02/12/17 16:17 10 MG Pantoprazole Sodium (Protonix Tab) 40 mg QAM PO 02/12/17 09:00 03/14/17 08:59 02/15/17 09:17 40 MG Morphine Sulfate (MoRPHine SULFATE INJ) 4 mg Q2H PRN IV 02/12/17 01:30 02/26/17 01:14 Aspirin (Ecotrin Tab) 81 mg BID PO 02/12/17 09:00 03/14/17 08:59 02/15/17 09:16 81 MG Vancomycin HCl (Consult) 1 ea UD PRN N/A 02/12/17 10:29 03/14/17 10:28 Piperacillin Sod/ Tazobactam Sod (Consult) 1 ea UD PRN N/A 02/12/17 10:30 03/14/17 10:29 Vancomycin HCl 2000 mg/Sodium Chloride 540 ml @ 200 mls/hr Q12H IV 02/12/17 12:00 02/22/17 11:59 02/15/17 12:44 200 MLS/HR Piperacillin Sod/ Tazobactam Sod 4.5 gm/Dextrose 120 ml @ 30 mls/hr Q8@0200,1000,1800 IV 02/12/17 18:00 02/22/17 17:59 02/15/17 09:18 30 MLS/HR Heparin Sodium (Porcine) (Heparin 10 Unit/ ml 5 ml Flush) 5 ml PRN PRN FLUSH 02/13/17 23:30 03/15/17 23:29 02/15/17 08:57 5 ML Objective Vital Signs Date Time Temp Pulse Resp B/P (MAP) Pulse Ox O2 Delivery O2 Flow Rate FiO2 02/15/17 08:30 Room Air 02/15/17 07:27 36.8 86 20 148/84 (105) 98 Room Air 02/15/17 00:00 Room Air 02/14/17 22:47 36.9 79 16 127/72 (90) 96 Room Air 02/14/17 20:03 98 Room Air 02/14/17 16:00 Room Air 02/14/17 15:50 36.9 86 18 125/72 (89) 97 Room Air Physical Exam General Appearance: WD/WN, no apparent distress Eyes: normal inspection, sclerae normal ENT: normal ENT inspection, pharynx normal Neck: supple, no adenopathy, trachea midline Respiratory/Chest: lungs clear, normal breath sounds, no respiratory distress Cardiovascular: regular rate, rhythm, no gallop, no murmur Abdomen: normal bowel sounds, non tender, soft, no organomegaly Extremities: non-tender, no calf tenderness Neurologic/Psychiatric: alert, oriented x 3 Skin: normal color, no rash Lymphatic: no adenopathy Laboratory Results Last 24 Hours Test 02/15/17 06:06 02/15/17 11:47 White Blood Count 5.22 K/uL Red Blood Count 3.23 M/uL Hemoglobin 8.2 g/dL Hematocrit 25.4 % Mean Corpuscular Volume 78.6 fL Mean Corpuscular Hemoglobin 25.4 pg Mean Corpuscular Hemoglobin Concent 32.3 g/dl RDW Standard Deviation 47.0 fL RDW Coefficient of Variation 16.6 % Platelet Count 267 K/uL Mean Platelet Volume 8.2 fL Sodium Level 140 mmol/L Potassium Level 3.7 mmol/L Chloride Level 105 mmol/L Carbon Dioxide Level 27 mmol/L Anion Gap 8.0 mmol/L Blood Urea Nitrogen 9 mg/dl Creatinine 1.16 mg/dl Est Creatinine Clear Calc Drug Dose 105.9 ml/min Estimated GFR () 81.1 Estimated GFR (Non- 70.0 BUN/Creatinine Ratio 7.8 Random Glucose 120 mg/dl Calcium Level 8.3 mg/dl Vancomycin Level Trough 17.2 mcg/ml Assessment and Plan 56-year-old male with history of hypothyroidism and hypertension, with multiple previous right hip surgeries, now presents with evidence of deep infection of right hip, now status post debridement and poly exchange. Operative cultures are all negative. Given difficulty with previous surgeries, multiple revisions, would favor prolonged IV antibiotics despite negative cultures, and would recommend use of daptomycin 6 milligrams/kilogram daily along with oral ciprofloxacin 500 mg b.i.d..
[2017-02-15 15:05] VITALS: BP 134/76; PULSE 84; TEMP 36.8; O2SAT 96
[2017-02-15] MEDS ORDERED: DAPT500I IV (16:08)
[2017-02-15] MEDS ORDERED: ASPEC81 PO (16:08)
[2017-02-15] MEDS ORDERED: ACET-24 PO (16:08)
[2017-02-15] MEDS ORDERED: RXC5 PO (16:08)
[2017-02-15] MEDS ORDERED: OXYSR10 PO (16:08)
[2017-02-15] MEDS ORDERED: CPR500 PO (16:08)
--- NOTE | 2017-02-15 16:13 | Progress Note ---
Internal Med Progress Note Date of Service: Feb 15, 2017. Provider Documentation: SUBJECTIVE: Seen and examined at bedside Hip Pain is controlled Denies any chest pain, SOB, dizziness, abd pain Offers no other complaints Family at bedside OBJECTIVE: Vital Signs-as noted below Physical Exam: General Appearance:Moderately built and nourished, no apparent distress Head: normocephalic, Atraumatic Eyes: normal inspection, EOMI, PERRL Neck: supple, Trachea midline Respiratory/Chest: Normal breath sounds, CTA Cardiovascular: S1, S2, No murmur Abdomen/GI:Soft, Non tender, Bowel sounds present Extremities/Musculoskelatal:normal inspection, no edema, Right hip surgical site in sunny Neurologic/Psych:AAOX3, grossly no focal neurological deficits Skin: normal color, warm Lab data as noted below. ASSESSMENT & PLAN: Patient is a 56 yr male with history of HTN, Hypothyroidism, BPH, GERD, and other problems noted below presenting with right hip surgery. RIGHT HIP ABSCESS S/P I&D, DEBRIDEMENT, ANTIBIOTIC BEAD PLACEMENT post op day 4 afebrile, no leukocytosis cultures:R hip abscess/R joint fluid: negative Continue IV antibiotics per ID Appreciate ID input ACUTE RENAL FAILURE likely pre renal Resolved Cr: 1.4--> 1.8---> 1.5>>>>1.16 hold HCTZ for now Avoid NSAIDs, contrasts monitor renal function HYPERKALEMIA resolved ACUTE BLOOD LOSS ANEMIA s/p 4 units pRBC Hg 8.2 monitor Hg HYPOTHYROIDISM: continue levothyroxine HYPERTENSION Stable hold HCTZ and Nifedipine for now continue Metoprolol monitor BP BPH continue Tamsulosin DVT prophylaxis per Ortho Thank you for this consultation. We will follow the patient with you during their hospital stay. You [facility] via pager @ . Vital Signs: Date Time Temp Pulse Resp B/P (MAP) Pulse Ox O2 Delivery O2 Flow Rate FiO2 02/15/17 15:30 Room Air 02/15/17 15:05 36.8 84 18 134/76 (95) 96 Room Air 02/15/17 08:30 Room Air 02/15/17 07:27 36.8 86 20 148/84 (105) 98 Room Air 02/15/17 00:00 Room Air 02/14/17 22:47 36.9 79 16 127/72 (90) 96 Room Air 02/14/17 20:03 98 Room Air Lab Results: Results Past 24 Hours Test 02/15/17 06:06 02/15/17 11:47 Range/Units White Blood Count 5.22 4.8-10.8 K/uL Red Blood Count 3.23 4.7-6.1 M/uL Hemoglobin 8.2 14.0-18.0 g/dL Hematocrit 25.4 42-52 % Mean Corpuscular Volume 78.6 80-100 fL Mean Corpuscular Hemoglobin 25.4 25-34 pg Mean Corpuscular Hemoglobin Concent 32.3 32-36 g/dl RDW Standard Deviation 47.0 36.4-46.3 fL RDW Coefficient of Variation 16.6 11.5-14.5 % Platelet Count 267 130-400 K/uL Mean Platelet Volume 8.2 7.4-10.4 fL Sodium Level 140 136-145 mmol/L Potassium Level 3.7 3.5-5.1 mmol/L Chloride Level 105 98-107 mmol/L Carbon Dioxide Level 27 21-32 mmol/L Anion Gap 8.0 3-11 mmol/L Blood Urea Nitrogen 9 7-18 mg/dl Creatinine 1.16 0.60-1.40 mg/dl Est Creatinine Clear Calc Drug Dose 105.9 ml/min Estimated GFR () 81.1 Estimated GFR (Non- 70.0 BUN/Creatinine Ratio 7.8 10-20 Random Glucose 120 70-99 mg/dl Calcium Level 8.3 8.5-10.1 mg/dl Vancomycin Level Trough 17.2 SEE COMMENT mcg/ml
--- NOTE | 2017-02-15 16:35 | Discharge Instructions ---
Discharge Instructions Date of Service Feb 15, 2017. Admission Reason for Admission: Prosthetic Hip Infection Discharge Discharge Diagnosis / Problem: Right NANCY Infection Discharge Goals Goal(s): Decrease discomfort, Improve function Activity Recommendations Activity Limitations: per Instructions/Follow-up section Weightbearing Status: Right weightbearing (as tolerated) . Instructions / Follow-Up Instructions / Follow-Up ACTIVITY RECOMMENDATIONS: SELF CARE INSTRUCTIONS AFTER TOTAL HIP REPLACEMENT Until the incision and soft tissues around your hip have healed, there is a possibility that the hip prosthesis could dislocate. A. Observe the following precautions to prevent dislocation: 1. Don't bend your hip greater than 90 degrees. 2. Avoid crossing your legs or ankles while standing or lying. 3. Sit with your feet placed 6 inches apart. 4. When sitting, keep your knees below your hips. Sit on a firm surface, avoid deep, soft chairs and couches. Use an elevated toilet seat in the bathroom. 5. Don't bend over at the waist. Use a long handled shoehorn and a sock aid to help you put on your shoes and socks. A plant production worker can help you curing pickling packer objects that are too high or too low to reach. 6. Keep car riding to a minimum for at least one month after surgery. B. Your balance may be shaky for a while. Use crutches or a walker until directed by your doctor. C. Use hand rails when walking on stairs. D. Wear low heeled shoes with non-slip soles. E. Be sure that your floors are free of things that could trip you - throw rugs , electrical cords, small objects. Avoid wet and waxed floors, especially with crutches and canes. F. Try to walk several times a day with rest periods between. G. Continue with all the exercises taught to you in the hospital. Again, make walking a part of your daily routine. SPECIAL CARE INSTRUCTIONS: VERY IMPORTANT TO READ AND REVIEW A. You may still be at risk for phlebitis and blood clots. 1. Wear surgical stockings (ILANA hose) for 2 weeks after surgery to improve circulation and reduce swelling. 2. Take Aspirin 81mg twice daily for 4 weeks or as directed by your doctor. This is your blood thinner. 3. High risk patients may be prescribed a stronger blood thinner if necessary. 4. If you are on Coumadin normally, your family doctor/counter top assembler should monitor your blood work. Expect a phone call the day of or the day after bloodwork is drawn to adjust your dosage. B. You must take antibiotics before having dental work, bladder, bowel and other surgery. Your doctor will provide you with a permanent card to carry describing precautions. C. Call [facility] if you have a fever, redness or swelling around the incision, cloudy drainage from incision, or sudden increase in pain in your hip, not relieved by your regular pain medication. D. Please call the office at if you have any concerns or questions about your operation or recovery. E. YOU WILL BE RECEIVING IV AND ORAL ANTIBIOTICS FOR [address] LICEA WILL BE MANAGING THESE MEDICINES. LABWORK WILL BE DRAWN WEEKLY AND SENT TO HIM. HE WILL CALL WITH ANY CHANGES HE WANTS TO MAKE. * YOU MAY SHOWER, NO TUB BATHS UNTIL CLEARED BY YOUR DOCTOR. * WEAR ILANA HOSE 20 HOURS PER DAY FOR 2 WEEKS. * YOU SHOULD USE A WALKER OR CRUTCHES FOR 2-4 WEEKS. THIS WILL HELP PREVENT STRAIN ON YOUR HIP MUSCLE AND ALLOW IT TO HEAL PROPERLY. YOU MAY WEAN TO A CANE TOLERATED. * MOST PATIENTS WILL HAVE HOME NURSING FOR THERAPY. IF YOU DECIDE TO DO OUTPATIENT PHYSICAL THERAPY, PLEASE SCHEDULE THIS 3 TIMES PER WEEK. * YOU MAY HAVE A LARGE, BAND-PEPPER LIKE DRESSING (SILVERON). THIS WILL REMAIN ON YOUR INCISION FOR 7 DAYS, THEN CAN BE REMOVED. IF INCISION IS LEAKING THROUGH DRESSING, PLEASE CALL THE OFFICE . FOLLOW UP VISIT: If appointment is not already scheduled: Please call [facility] to make a follow-up appointment 2 weeks from the day of your surgery at . FOLLOW UP WITH DR LICEA IN 10-14 DAYS. CALL FOR AN APPOINTMENT. [phone] Current Hospital Diet Patient's current hospital diet: Regular Diet Discharge Diet Recommended Diet: Regular Diet Procedures Procedures Performed: Right hip arthrotomy, Incision and drainage, synovectomy, capsulectomy, infected right total hip repair, placement 20cc antibiotic Stimulan Beads, excision heterotopic bone, Incision and drainage right anterior thigh abscess, placement of drains, removal of suture anchors, material and stakes post abductor repair of hip Pending Studies Studies pending at discharge: yes List of pending studies: FINAL CULTURE RESULTS Laboratory Results Hemoglobin A1c Test 02/10/17 14:42 Range/Units Estimated Average Glucose 126 mg/dl Hemoglobin A1c 6.0 H 4.5-5.6 % Medical Emergencies . Who to Call and When: Medical Emergencies: If at any time you feel your situation is an emergency, please call 911 immediately. . Non-Emergent Contact Non-Emergency issues call your: Surgeon Call Non-Emergent contact if: temperature is above 101.5, your pain is not controlled, your pain is worsening, wound has increased drainage, wound has increased redness . "Provider Documentation" section prepared by Tino Caro. . VTE Core Measure Inpt VTE Proph given/why not?: Other Anticoagulation, T.E.D. Stockings, SCD's [place] Drug Monitoring Program Search Results: patient reviewed within database, no issues identified
[2017-02-15] MEDS ORDERED: DAPTOmycin IV 780 MG in SODIUM CHLORIDE 0.9% 50ML 50 ML IV SCH (17:00)
[2017-02-15] MEDS: CIPROFLOXACIN 500 MG TAB PO SCH (17:03)
[2017-02-15] MEDS: OXYCODONE HCL IR 5 MG TAB (IMMEDIATE RELEASE) PO PRN (20:54)
[2017-02-15 23:00] VITALS: BP 150/80; PULSE 83; TEMP 37; O2SAT 96
[2017-02-16] MEDS: ACETAMINOPHEN 500 MG TAB PO SCH ×2 (01:00→08:30)
[2017-02-16] MEDS: LEVOTHYROXINE 100 MCG TAB PO SCH (05:53)
[2017-02-16 06:47] VITALS: BP 142/84; PULSE 83; TEMP 36.6; O2SAT 97
[2017-02-16 07:35] LABS: HEMATOCRIT 26.7 % (42-52); MEAN CELL VOLUME 79.7 fL (80-100); MEAN CORPUSCULAR HEMOGLOBIN 25.1 pg (25-34); MEAN CORPUSCULAR HGB CONC 31.5 g/dl (32-36); MEAN PLATELET VOLUME 8.1 fL (7.4-10.4); PLATELET COUNT 298 K/uL (130-400); RED BLOOD COUNT 3.35 M/uL (4.7-6.1); WHITE BLOOD COUNT 4.58 K/uL (4.8-10.8)
[2017-02-16 08:00] LABS: BUN/CREATININE RATIO 5.9 (10-20); CREATININE 1.08 mg/dl (0.60-1.40); POTASSIUM 3.4 mmol/L (3.5-5.1)
--- NOTE | 2017-02-16 08:52 | Orthopedic Progress Note ---
Orthopedic Progress Note Date of Service Feb 16, 2017. Subjective Reports: feeling well, Denies: chest pain, SOB, nausea / vomiting, light headedness, calf pain Objective calves soft nontender, N/V intact, hip located, capillary refill less than 2 sec., incision C/D/I, A&O x3, toes mobile Date Time Temp Pulse Resp B/P (MAP) Pulse Ox O2 Delivery O2 Flow Rate FiO2 02/16/17 06:47 36.6 83 18 142/84 (103) 97 Room Air 02/16/17 00:10 Room Air 02/15/17 23:00 37.0 83 18 150/80 (103) 96 Room Air 02/15/17 15:30 Room Air 02/15/17 15:05 36.8 84 18 134/76 (95) 96 Room Air Laboratory Results 24 Hours: Test 02/16/17 07:22 Hematocrit 26.7 % Hemoglobin 8.4 g/dL Assessment & Plan Assessment: POD #4 Right hip I&D NANCY and ant thigh abcess with debridement and placement antibx beads. Post op anemia, Plan: PT/ OT - WBAT w walker DVT proph- ASA D/C planning- Home likely w HH and IV antibx, SS aware. PICC placed. As per medicine Gram stain many WBC's, no organisms, Final Cultures pending. Per ID input, on vanco and zosyn for now, await final input for poss D/C
[2017-02-16] MEDS: DOCUSATE SODIUM 100 MG CAP PO SCH (09:00)
[2017-02-16] MEDS: METOPROLOL SUCC 50MG EXT REL TAB PO SCH (09:14)
[2017-02-16] MEDS: OXYCODONE HCL 10 MG TABCR (OXYCONTIN) PO SCH (09:15)
[2017-02-16] MEDS: CEROVITE ADV FORMULA TAB PO SCH (09:15)
[2017-02-16] MEDS: VENLAFAXINE HCL XR 150 MG CAPXR PO SCH (09:15)
[2017-02-16] MEDS: TAMSULOSIN HCL 0.4 MG CAP PO SCH (09:15)
[2017-02-16] MEDS: MULTIVITAMIN TAB PO SCH (09:15)
[2017-02-16] MEDS: ASPIRIN 81 MG ECTAB PO SCH (09:15)
[2017-02-16] MEDS: PANTOprazole SOD 40 MG TAB PO SCH (09:15)
[2017-02-16] MEDS: CIPROFLOXACIN 500 MG TAB PO SCH (09:16)
[2017-02-16] MEDS: CALCIUM 600MG + VIT D 400 IU TAB PO SCH (09:16)
[2017-02-16 11:56] VITALS: BP 142/84; PULSE 83; TEMP 36.6; O2SAT 97
[2017-02-16] MEDS: OXYCODONE HCL IR 5 MG TAB (IMMEDIATE RELEASE) PO PRN (13:47)
[2017-02-16] MEDS ORDERED: DAPTOMYCIN IV SCH (17:00)
--- NOTE | 2017-03-03 22:12 | DISCHARGE SUMMARY ---
HISTORY OF PRESENT ILLNESS: This is a 56-year-old male patient of Dr. Slaughter complaining of chronic right hip pain and swelling. The patient has a complex history of a right total hip replacement in December of 2010. He subsequently underwent a right revision total hip arthroplasty in January 2012. He underwent a third surgery in November 2014 where he had deep hardware removal of the right hip as well as the gluteus medius repair. Recently since 02/05/2017, the patient has been experiencing increased swelling and pain in the anterior lateral aspect of his right hip. He denies any injuries or trauma. He reported to the Emergency Department where he was started on a course of Keflex antibiotics, diagnosed with cellulitis and he followed up in the office. A bone scan revealed increased uptake of soft tissue to reveal a fluid collection in the anterior aspect of his thigh and an MRI confirmed fluid collections in the anterior aspect of the thigh as well as the trochanteric bursa area of his hip. The patient was diagnosed clinically and diagnostically with a right hip abscess, probable infection of total hip arthroplasty. The patient was admitted for hip incision and drainage and possible revision of femoral head and poly exchange of acetabular component as well as removal of heterotopic bone. PAST MEDICAL HISTORY: Hypertension, hypothyroidism, osteoarthritis, acid reflux. POSTOPERATIVE COURSE: On 02/11/2017, the patient underwent a right hip incision and drainage, arthrotomy, irrigation and debridement including excision of heterotopic ossification, synovectomy, capsulectomy, hardware removal from greater trochanteric suture material, I&D of subcutaneous tissue including placement of the antibiotic beads and closure over drain. POSTOPERATIVE COURSE: The patient was followed closely with medical consultation, DVT prophylaxis, infectious disease was on board. He did not grow out any type of organisms; however, due to his complex nature, he was given a PICC line and was advised to continue 6 weeks at least of IV antibiotics including daptomycin IV as well as the addition of ciprofloxacin orally. Upon discharge right thigh incision and total hip arthroplasty incision were clean, dry and intact. Kristy were intact. Skin edges were approximated well. There was no redness or drainage. He had no calf tenderness. Negative Homans sign. Neurologically and neurovascularly he is intact in his right lower extremity. DIAGNOSES: Status post right hip incision and drainage, arthrotomy, irrigation and debridement including heterotopic ossification, synovectomy, capsulectomy, hardware removal from the greater trochanteric old suture material and debridement of anterior right thigh abscess with placement of antibiotic beads over drain closures. The patient also has a history of hypertension, hypothyroidism, osteoarthritis, and acid reflux.. PLAN: The patient was discharged home with home health services. He will continue IV antibiotics through a PICC line to include daptomycin and oral ciprofloxacin. He will continue follow up coverage from infectious disease and outpatient followup with Dr. Slaughter as scheduled.
== END 2017-02-16 13:49 | disposition home health service (06) | DRG 464 ==
LOC: C.ACU 12:49 → C.MSN 22:56 → ENRESERV 23:56
PROVIDERS: ADMIT Orthopaedic Surgery Sports Medicine; ATTEND Orthopaedic Surgery Sports Medicine
PROC: 0QP604Z Removal of Internal Fixation Device from Right Upper Femur, Open Approach (ICD-10-PCS; principal; 2017-02-11 14:15)
PROC: 0SB90ZZ Excision of Right Hip Joint, Open Approach (ICD-10-PCS; principal; 2017-02-11 14:15)
PROC: 0QB60ZZ Excision of Right Upper Femur, Open Approach (ICD-10-PCS; principal; 2017-02-11 14:15)
PROC: 3E0U029 Introduction of Other Anti-infective into Joints, Open Approach (ICD-10-PCS; principal; 2017-02-11 14:15)
PROC: 3E02329 Introduction of Other Anti-infective into Muscle, Percutaneous Approach (ICD-10-PCS; principal; 2017-02-11 14:15)
PROC: 0JBN0ZZ Excision of Right Lower Leg Subcutaneous Tissue and Fascia, Open Approach (ICD-10-PCS; principal; 2017-02-11 14:15)
PROC: 0MDL0ZZ Extraction of Right Hip Bursa and Ligament, Open Approach (ICD-10-PCS; principal; 2017-02-11 14:15)
PROC: 02HV33Z Insertion of Infusion Device into Superior Vena Cava, Percutaneous Approach (ICD-10-PCS; 2017-02-13)
DX: T84.51XA Infection and inflammatory reaction due to internal right hip prosthesis, initial encounter (principal); L02.413 Cutaneous abscess of right upper limb; N17.9 Acute kidney failure, unspecified; M60.062 Infective myositis, left lower leg; M00.851 Arthritis due to other bacteria, right hip; D62 Acute posthemorrhagic anemia; M65.852 Other synovitis and tenosynovitis, left thigh; I10 Essential (primary) hypertension; E03.9 Hypothyroidism, unspecified; K21.9 Gastro-esophageal reflux disease without esophagitis; M19.90 Unspecified osteoarthritis, unspecified site; G89.29 Other chronic pain; H90.5 Unspecified sensorineural hearing loss; Z96.641 Presence of right artificial hip joint; E87.5 Hyperkalemia; N40.0 Benign prostatic hyperplasia without lower urinary tract symptoms; Y79.2 Prosthetic and other implants, materials and accessory orthopedic devices associated with adverse incidents; Y92.019 Unspecified place in single-family (private) house as the place of occurrence of the external cause

== ENCOUNTER → 2017-02-21 | Outpatient (CLI) | payer OTHER ==
[~2017-02-21] MED LIST changes: +ACET-24 PO; -ACETAMINOPHEN 500 MG TAB PO SCH; +ASPEC81 PO; -CEFAZOLIN 3000MG IV PUSH 15 ML IV SCH; -CEPH500C PO; +CPR500 PO; +DAPT500I IV; -DEXAMETHASONE 4 MG TAB PO SCH; -FAMOTIDINE 20 MG TAB PO SCH; -GABAPENTIN 300 MG CAP PO SCH; -LACTATED RINGER'S 1000ML IV SCH; -METOCLOPRAMIDE HCL 10 MG TAB PO SCH; +OXYSR10 PO; +RXC5 PO; -TRAM-10 PO; -VANCOMYCIN INJ 2,000 MG in SODIUM CHLORIDE 0.9% 500ML 500 ML IV SCH
[2017-02-21 12:19] LABS: HEMATOCRIT 31.2 % (42-52); HEMOGLOBIN 9.8 g/dL (14.0-18.0); MEAN CELL VOLUME 80.4 fL (80-100); MEAN CORPUSCULAR HEMOGLOBIN 25.3 pg (25-34); MEAN CORPUSCULAR HGB CONC 31.4 g/dl (32-36); MEAN PLATELET VOLUME 8.7 fL (7.4-10.4); PLATELET COUNT 378 K/uL (130-400); WHITE BLOOD COUNT 7.19 K/uL (4.8-10.8)
[2017-02-21 12:31] LABS: ALT/SGPT 41 U/L (12-78); AST/SGOT 25 U/L (15-37); BLOOD UREA NITROGEN 12 mg/dl (7-18); CARBON DIOXIDE 27 mmol/L (21-32); CREATININE 1.18 mg/dl (0.60-1.40); GLUCOSE 130 mg/dl (70-99); POTASSIUM 3.4 mmol/L (3.5-5.1); SODIUM 136 mmol/L (136-145)
[2017-02-21 12:34] LABS: ALKALINE PHOSPHATASE 170 U/L (45-117); TOTAL PROTEIN 7.2 gm/dl (6.4-8.2)
== END | disposition home or self-care (01) ==
LOC: C.LABSPEC 12:51
PROVIDERS: ATTEND Internal Medicine Infectious Disease
DX: M00.9 Pyogenic arthritis, unspecified (principal)

== ENCOUNTER → 2017-02-28 | Outpatient (CLI) | payer OTHER ==
[2017-02-28 12:26] LABS: HEMATOCRIT 33.6 % (42-52); HEMOGLOBIN 10.7 g/dL (14.0-18.0); MEAN CELL VOLUME 79.4 fL (80-100); MEAN CORPUSCULAR HEMOGLOBIN 25.3 pg (25-34); MEAN CORPUSCULAR HGB CONC 31.8 g/dl (32-36); PLATELET COUNT 382 K/uL (130-400); RED CELL DISTRIBUTION WIDTH CV 16.2 % (11.5-14.5); RED CELL DISTRIBUTION WIDTH SD 46.8 fL (36.4-46.3); WHITE BLOOD COUNT 7.18 K/uL (4.8-10.8)
[2017-02-28 12:37] LABS: ALBUMIN 3.3 gm/dl (3.4-5.0); ALT/SGPT 28 U/L (12-78); AST/SGOT 15 U/L (15-37); BLOOD UREA NITROGEN 16 mg/dl (7-18); CALCIUM 8.9 mg/dl (8.5-10.1); CARBON DIOXIDE 24 mmol/L (21-32); CREATININE 1.32 mg/dl (0.60-1.40); GLUCOSE 153 mg/dl (70-99); POTASSIUM 3.1 mmol/L (3.5-5.1); SODIUM 134 mmol/L (136-145)
[2017-02-28 12:40] LABS: ALKALINE PHOSPHATASE 217 U/L (45-117)
== END | disposition home or self-care (01) ==
LOC: C.LABSPEC 16:10
PROVIDERS: ATTEND Internal Medicine Infectious Disease
DX: M00.9 Pyogenic arthritis, unspecified (principal)

== ENCOUNTER → 2017-03-07 | Outpatient (CLI) | payer OTHER ==
[2017-03-07 12:34] LABS: HEMATOCRIT 33.5 % (42-52); HEMOGLOBIN 10.7 g/dL (14.0-18.0); MEAN CELL VOLUME 78.6 fL (80-100); MEAN CORPUSCULAR HEMOGLOBIN 25.1 pg (25-34); MEAN CORPUSCULAR HGB CONC 31.9 g/dl (32-36); MEAN PLATELET VOLUME 8.8 fL (7.4-10.4); PLATELET COUNT 372 K/uL (130-400); RED CELL DISTRIBUTION WIDTH CV 15.8 % (11.5-14.5); RED CELL DISTRIBUTION WIDTH SD 45.4 fL (36.4-46.3); WHITE BLOOD COUNT 5.01 K/uL (4.8-10.8)
[2017-03-07 12:58] LABS: ALBUMIN 3.4 gm/dl (3.4-5.0); ALT/SGPT 31 U/L (12-78); BLOOD UREA NITROGEN 11 mg/dl (7-18); CALCIUM 9.2 mg/dl (8.5-10.1); CARBON DIOXIDE 29 mmol/L (21-32); CREATININE 1.22 mg/dl (0.60-1.40); GLUCOSE 94 mg/dl (70-99); POTASSIUM 3.2 mmol/L (3.5-5.1); SODIUM 135 mmol/L (136-145)
[2017-03-07 13:01] LABS: ALKALINE PHOSPHATASE 246 U/L (45-117); AST/SGOT 25 U/L (15-37); TOTAL PROTEIN 7.9 gm/dl (6.4-8.2)
== END | disposition home or self-care (01) ==
LOC: C.LABSPEC 16:08
PROVIDERS: ATTEND Internal Medicine Infectious Disease
DX: M00.9 Pyogenic arthritis, unspecified (principal)

== ENCOUNTER → 2017-03-14 | Outpatient (CLI) | payer OTHER ==
[~2017-03-14] MED LIST changes: -ASPEC81 PO; +ASPI-320 PO; -NIFE1TAB53 PO; +NIFE30TA86 PO
[2017-03-14 12:23] LABS: HEMATOCRIT 34.7 % (42-52); HEMOGLOBIN 10.9 g/dL (14.0-18.0); MEAN CELL VOLUME 79.8 fL (80-100); MEAN CORPUSCULAR HEMOGLOBIN 25.1 pg (25-34); MEAN CORPUSCULAR HGB CONC 31.4 g/dl (32-36); MEAN PLATELET VOLUME 9.2 fL (7.4-10.4); PLATELET COUNT 348 K/uL (130-400); RED CELL DISTRIBUTION WIDTH CV 15.9 % (11.5-14.5); RED CELL DISTRIBUTION WIDTH SD 46.8 fL (36.4-46.3); WHITE BLOOD COUNT 6.05 K/uL (4.8-10.8)
[2017-03-14 13:20] LABS: ALBUMIN 3.4 gm/dl (3.4-5.0); ALT/SGPT 28 U/L (12-78); AST/SGOT 16 U/L (15-37); BLOOD UREA NITROGEN 11 mg/dl (7-18); CALCIUM 8.9 mg/dl (8.5-10.1); CARBON DIOXIDE 28 mmol/L (21-32); CREATININE 1.26 mg/dl (0.60-1.40); GLUCOSE 110 mg/dl (70-99); POTASSIUM 3.3 mmol/L (3.5-5.1); SODIUM 137 mmol/L (136-145)
[2017-03-14 13:23] LABS: ALKALINE PHOSPHATASE 221 U/L (45-117); TOTAL PROTEIN 7.8 gm/dl (6.4-8.2)
--- NOTE | 2017-03-25 09:19 | CODING QUERY NO DIAGNOSIS ---
TREATMENT RENDERED WITHOUT A DIAGNOSIS : 1960 To promote full compliance with coding requirements relating to patient care, physician participation is requested in all cases of youtuber uncertainty. Please assist us with providing a diagnosis/symptom for the test(s) below: A diagnosis/symptom was not documented on your Order. A valid diagnosis/symptom is required to bill all insurances. Please remember that we are unable to code a diagnosis of rule out, probable, possible, questionable, or suspected. Tests that require a diagnosis: DOS: 03/14/17 * CBC W/O DIFF DIAGNOSIS: * COMPREHENSIVE METABO DIAGNOSIS: * CREATINE PHOSPHOKINASE DIAGNOSIS: Provider Signature: Date: Thank you Cecelia Burgos Health Information Management Once completed, please kindly fax back to [phone] For questions please call [phone]
== END | disposition home or self-care (01) ==
LOC: C.LABSPEC 16:20
PROVIDERS: ATTEND Internal Medicine Infectious Disease
DX: M00.9 Pyogenic arthritis, unspecified (principal)

== ENCOUNTER → 2017-03-21 | Outpatient (CLI) | payer OTHER ==
[~2017-03-21] MED LIST changes: +ASPEC81 PO; -ASPI-320 PO; +NIFE1TAB53 PO; -NIFE30TA86 PO
[2017-03-21 12:12] LABS: HEMATOCRIT 36.5 % (42-52); HEMOGLOBIN 11.3 g/dL (14.0-18.0); MEAN CELL VOLUME 78.8 fL (80-100); MEAN CORPUSCULAR HEMOGLOBIN 24.4 pg (25-34); PLATELET COUNT 357 K/uL (130-400); RED CELL DISTRIBUTION WIDTH CV 15.9 % (11.5-14.5); RED CELL DISTRIBUTION WIDTH SD 45.7 fL (36.4-46.3); WHITE BLOOD COUNT 6.82 K/uL (4.8-10.8)
[2017-03-21 12:22] LABS: ALBUMIN 3.5 gm/dl (3.4-5.0); ALT/SGPT 26 U/L (12-78); AST/SGOT 18 U/L (15-37); BLOOD UREA NITROGEN 11 mg/dl (7-18); CALCIUM 8.9 mg/dl (8.5-10.1); CARBON DIOXIDE 27 mmol/L (21-32); CREATININE 1.14 mg/dl (0.60-1.40); GLUCOSE 121 mg/dl (70-99); POTASSIUM 3.4 mmol/L (3.5-5.1); SODIUM 136 mmol/L (136-145)
[2017-03-21 12:24] LABS: ALKALINE PHOSPHATASE 207 U/L (45-117); TOTAL PROTEIN 8.1 gm/dl (6.4-8.2)
== END | disposition home or self-care (01) ==
LOC: C.LABSPEC 11:53
PROVIDERS: ATTEND Internal Medicine Infectious Disease
DX: M00.9 Pyogenic arthritis, unspecified (principal)

== ENCOUNTER → 2017-03-28 | Outpatient (CLI) | payer OTHER ==
[~2017-03-28] MED LIST changes: -ASPEC81 PO; +ASPI-320 PO; -NIFE1TAB53 PO; +NIFE30TA86 PO
[2017-03-28 10:01] LABS: HEMATOCRIT 36.6 % (42-52); HEMOGLOBIN 11.8 g/dL (14.0-18.0); MEAN CELL VOLUME 77.1 fL (80-100); MEAN CORPUSCULAR HEMOGLOBIN 24.8 pg (25-34); MEAN CORPUSCULAR HGB CONC 32.2 g/dl (32-36); MEAN PLATELET VOLUME 9.1 fL (7.4-10.4); PLATELET COUNT 299 K/uL (130-400); RED CELL DISTRIBUTION WIDTH CV 15.7 % (11.5-14.5); RED CELL DISTRIBUTION WIDTH SD 43.8 fL (36.4-46.3); WHITE BLOOD COUNT 8.16 K/uL (4.8-10.8)
[2017-03-28 10:38] LABS: ALBUMIN 3.5 gm/dl (3.4-5.0); ALT/SGPT 25 U/L (12-78); AST/SGOT 15 U/L (15-37); BLOOD UREA NITROGEN 13 mg/dl (7-18); CALCIUM 8.7 mg/dl (8.5-10.1); CARBON DIOXIDE 27 mmol/L (21-32); CREATININE 1.23 mg/dl (0.60-1.40); GLUCOSE 100 mg/dl (70-99); POTASSIUM 3.8 mmol/L (3.5-5.1); SODIUM 134 mmol/L (136-145)
[2017-03-28 10:41] LABS: ALKALINE PHOSPHATASE 201 U/L (45-117); TOTAL PROTEIN 8.1 gm/dl (6.4-8.2)
--- NOTE | 2017-04-08 09:58 | CODING QUERY NO DIAGNOSIS ---
TREATMENT RENDERED WITHOUT A DIAGNOSIS : 1960 To promote full compliance with coding requirements relating to patient care, physician participation is requested in all cases of electronics instructor uncertainty. Please assist us with providing a diagnosis/symptom for the test(s) below: A diagnosis/symptom was not documented on your Order. A valid diagnosis/symptom is required to bill all insurances. Please remember that we are unable to code a diagnosis of rule out, probable, possible, questionable, or suspected. Tests that require a diagnosis: DOS: 03/28/17 * CBC W/O DIFF DIAGNOSIS: * COMPREHENSIVE METABO DIAGNOSIS: * CRATINE PHOSPHOKIASE DIAGNOSIS: Provider Signature: Date: Thank you Cecelia Burgos Health Information Management Once completed, please kindly fax back to [phone] For questions please call [phone]
== END | disposition home or self-care (01) ==
LOC: C.LABSPEC 09:50
PROVIDERS: ATTEND Internal Medicine Infectious Disease
DX: M00.9 Pyogenic arthritis, unspecified (principal)

== ENCOUNTER → 2017-04-04 | Outpatient (CLI) | payer OTHER ==
[~2017-04-04] MED LIST changes: +ASPEC81 PO; -ASPI-320 PO; +NIFE1TAB53 PO; -NIFE30TA86 PO
[2017-04-04 12:16] LABS: HEMATOCRIT 36.8 % (42-52); HEMOGLOBIN 11.6 g/dL (14.0-18.0); MEAN CELL VOLUME 77.1 fL (80-100); MEAN CORPUSCULAR HEMOGLOBIN 24.3 pg (25-34); MEAN CORPUSCULAR HGB CONC 31.5 g/dl (32-36); MEAN PLATELET VOLUME 9.1 fL (7.4-10.4); PLATELET COUNT 349 K/uL (130-400); RED CELL DISTRIBUTION WIDTH CV 15.6 % (11.5-14.5); RED CELL DISTRIBUTION WIDTH SD 44.3 fL (36.4-46.3); WHITE BLOOD COUNT 5.54 K/uL (4.8-10.8)
[2017-04-04 13:11] LABS: ALBUMIN 3.5 gm/dl (3.4-5.0); ALT/SGPT 29 U/L (12-78); BLOOD UREA NITROGEN 11 mg/dl (7-18); CALCIUM 9.3 mg/dl (8.5-10.1); CARBON DIOXIDE 26 mmol/L (21-32); GLUCOSE 85 mg/dl (70-99); POTASSIUM 3.6 mmol/L (3.5-5.1); SODIUM 137 mmol/L (136-145)
[2017-04-04 13:14] LABS: ALKALINE PHOSPHATASE 193 U/L (45-117); AST/SGOT 18 U/L (15-37); TOTAL PROTEIN 8.1 gm/dl (6.4-8.2)
== END | disposition home or self-care (01) ==
LOC: C.LABSPEC 11:50
PROVIDERS: ATTEND Internal Medicine Infectious Disease
DX: M00.9 Pyogenic arthritis, unspecified (principal)

== ENCOUNTER → 2017-04-05 | Day surgery (SDC) | payer OTHER ==
[~2017-04-05] VITALS: Ht 195.6 cm; Wt 128.9 kg
[2017-04-05 13:36] VITALS: BP 131/69; PULSE 93; TEMP 36.7; O2SAT 98; Ht 195.6 cm; Wt 128.9 kg
== END | disposition home or self-care (01) ==
LOC: C.MTU 13:31
PROVIDERS: ATTEND Internal Medicine Infectious Disease
DX: T84.59XA Infection and inflammatory reaction due to other internal joint prosthesis, initial encounter (principal); M00.9 Pyogenic arthritis, unspecified; Y84.8 Other medical procedures as the cause of abnormal reaction of the patient, or of later complication, without mention of misadventure at the time of the procedure

== ENCOUNTER → 2017-06-10 | Outpatient (CLI) | payer OTHER | END | disposition home or self-care (01) | LOC: C.LAB 14:35 | PROVIDERS: ATTEND Orthopaedic Surgery Sports Medicine | DX: T84.59XD Infection and inflammatory reaction due to other internal joint prosthesis, subsequent encounter (principal); Y83.1 Surgical operation with implant of artificial internal device as the cause of abnormal reaction of the patient, or of later complication, without mention of misadventure at the time of the procedure ==

== ENCOUNTER → 2017-06-20 | Outpatient (CLI) | payer OTHER | END | disposition home or self-care (01) | LOC: C.LAB 14:56 | PROVIDERS: ATTEND Orthopaedic Surgery Sports Medicine | DX: T84.59XD Infection and inflammatory reaction due to other internal joint prosthesis, subsequent encounter (principal); Y83.1 Surgical operation with implant of artificial internal device as the cause of abnormal reaction of the patient, or of later complication, without mention of misadventure at the time of the procedure ==

== ENCOUNTER 2025-01-01 06:36 | Observation (INO) ==
--- NOTE | 2024-12-03 14:04 | PAT Medication Instructions ---
Medication Instructions Date of Service December 03, 2024 Home Medications hydrochlorothiazide 25 mg tablet 25 mg PO QAM metoprolol succinate 50 mg tablet,extended release 24 hr 50 mg PO QAM nifedipine 30 mg tablet,extended release 30 mg PO QAM omeprazole 40 mg capsule,delayed release 40 mg PO QAM sumatriptan succinate 100 mg tablet 100 mg PO DIRECTED PRN venlafaxine 150 mg capsule,extended release 24 hr 300 mg PO QAM levothyroxine 112 mcg tablet 112 mcg PO QAM tamsulosin 0.4 mg capsule 0.4 mg PO QAM atorvastatin 20 mg tablet 20 mg PO QPM losartan 50 mg tablet 50 mg PO QAM Continue as directed sumatriptan succinate 100 mg tablet 100 mg PO DIRECTED PRN(if needed) DO NOT take the morning of surgery hydrochlorothiazide 25 mg tablet 25 mg PO QAM losartan 50 mg tablet 50 mg PO QAM Take morning of surgery With a small sip of water, OTHERWISE NOTHING TO EAT OR DRINK AFTER MIDNIGHT: metoprolol succinate 50 mg tablet,extended release 24 hr 50 mg PO QAM nifedipine 30 mg tablet,extended release 30 mg PO QAM omeprazole 40 mg capsule,delayed release 40 mg PO QAM venlafaxine 150 mg capsule,extended release 24 hr 300 mg PO QAM levothyroxine 112 mcg tablet 112 mcg PO QAM tamsulosin 0.4 mg capsule 0.4 mg PO QAM Take evening before surgery atorvastatin 20 mg tablet 20 mg PO QPM Other Notes If you have any questions please call us at [phone] or [phone] or [phone] or [phone]
--- NOTE | 2024-12-10 11:39 | Anesthesiology Consultation ---
Date of Service December 10, 2024 Assessment & Plan (1) Encounter for pre-operative examination: - Infectious disease screening: Per assessment on 12/10/24- No known recent infectious disease contacts or current infectious disease symptoms. - Outpatient joint assessment: Pt currently scheduled for inpatient pathway. If surgeon requests review for outpatient joint pathway, patient is not recommended candidate for outpatient joint program from anesthesia standpoint based on available information. Chart Review Chart Review: Acceptable Risk for Surgery and Patient seen in Pre Admission Testing Teaching & Discussion Pre-Anesthesia Teaching/Discussion Notes: Instructed NPO after midnight before surgery,except medications with 15 cc of water. Medication instructions provided according to the PAT guidelines. History Surgery Operation Date: 01/01/25 07:00 Proposed Procedures p Left Total Hip Arthroplasty - Dagoberto Heart MD Height/Weight Height: 6 ft 6 in Weight: 130.3 kg Allergies Allergy/AdvReac Type Severity Reaction Status Date / Time NSAIDS (Non-Steroidal AdvReac Severe Kidney Verified 12/05/24 11:24 Anti-Inflamma failure Medications Home Medications Medication Instructions Recorded Confirmed Last Taken hydrochlorothiazide 25 mg tablet 25 mg PO QAM #30 tabs 02/13/19 12/03/24 10/07/23 metoprolol succinate 50 mg 50 mg PO QAM 02/13/19 12/03/24 10/07/23 tablet,extended release 24 hr nifedipine 30 mg tablet,extended 30 mg PO QAM 02/13/19 12/03/24 10/07/23 release omeprazole 40 mg capsule,delayed 40 mg PO QAM 02/13/19 12/03/24 10/07/23 release sumatriptan succinate 100 mg tablet 100 mg PO DIRECTED PRN migraine 02/13/19 12/03/24 10/02/19 headache venlafaxine 150 mg 300 mg PO QAM 02/13/19 12/03/24 10/07/23 capsule,extended release 24 hr levothyroxine 112 mcg tablet 112 mcg PO QAM 10/03/19 12/03/24 10/07/23 tamsulosin 0.4 mg capsule 0.4 mg PO QAM 07/08/22 12/03/24 10/07/23 atorvastatin 20 mg tablet 20 mg PO QPM 10/07/23 12/03/24 10/06/23 losartan 50 mg tablet 50 mg PO QAM 06/12/03/24 10/07/23 Past Medical History Medical History Dyslipidemia Erectile dysfunction GERD (gastroesophageal reflux disease) HTN (hypertension) Hypotestosteronism Hypothyroidism Intractable migraine Iron deficiency anemia Hx Raynaud's phenomenon without gangrene Reason for nifedipine per patient Reflux esophagitis Hx Sensorineural hearing loss Stage 3a chronic kidney disease (CKD) Per records, patient denies "Only during certain period of time with NSAIDs" Subjective tinnitus Exercise / Class Metabolic Activity III < 4 Walking/Shop/Light housework Past Surgical History Surgical History (Updated 12/10/24 @ 12:10 by Karol Madden) H/O colonoscopy H/O cystoscopy H/O esophagogastroduodenoscopy History of hip surgery multiple replacements, multiple revisions (most recent revision 11/2023) History of open reduction and internal fixation (ORIF) procedure Right shoulder x2 > hardware intact S/P total hip arthroplasty Right Past Anesthesia History No Family Hx of Anesthesia Complications and Other (Momentary awareness with previous Right hip revision) History of PONV No Hx of PONV and No Hx of Motion Sickness Social History Smoking Status: Never smoker Do You Dip or Chew Tobacco: Yes (1/2 can/day; advised none DOS) Hx Alcohol Use: No Hx Substance Use: No substance use type: does not use Review of Systems Patient denies chest pain, shortness of breath, fever, chills, cough, wheezing, palpitations. Physical Exam Vital Signs BP 157/84 P 76 TEMP 98.8 SP02 96%RA RESP 16 Physical Full cervical extension range of motion. Full TMJ range of motion. TMD > 3.5 finger breaths Mallampati Score III Dentition: full dentures upper/lower Lungs: clear throughout to auscultation Cardiac: regular rate and rhythm, no murmurs noted Spine: normal Carotid arteries: negative bruit Extremities: no LE edema Lab Results Anesthesia Preop Results Results Anesthesia Widget: WBC 6.35 K/ul (4.8-10.8) 12/10/24 Hgb 13.4 g/dl (14.0-18.0) L 12/10/24 Hct 41.9 % (42.0-52.0) L 12/10/24 Plt 274 K/uL (130-400) 12/10/24 Na 135 mmol/L (136-145) L 12/10/24 K 3.8 mmol/L (3.5-5.1) 12/10/24 Cl 97 mmol/L (98-107) L 12/10/24 CO2 30 mmol/L (21-32) 12/10/24 BUN 16 mg/dl (6-23) 12/10/24 Creat 1.14 mg/dl (0.6-1.4) 12/10/24 Glucose Level 111 mg/dl (70-99(Fasting)) H 12/10/24 PT 10.6 Seconds (9.0-12.0) 12/10/24 PTT 26 Seconds (21-31) 12/10/24 INR 1.0 (0.9-1.1) 12/10/24 Blood Type AB Positive 12/10/24 Antibody Screen POSITIVE A 12/10/24 Testing Laboratory Results *Blood bank aware of positive antibodies- nothing further needed from PAT per Zohreh with blood bank* Electrocardiogram Date: 12/10/24 NSR at 78bpm. "Normal ECG" Chest X-Ray Date: 12/10/24 FINDINGS: Heart size and pulmonary vasculature are normal. Lungs are hyperexpanded. No consolidation or pleural effusions. Stable plate-screw fixation of the right clavicle. IMPRESSION: No acute findings.
[~2025-01-01 06:36] MED LIST changes: -ACET-24 PO; -ASPEC81 PO; +BUPIVACAINE 0.5 % 5 MG/1 ML PF 10ML VIAL ONE; -CALC500C70 PO; -CPR500 PO; -CYCL10TA6 PO; -DAPT500I IV; -DOCU100C31 PO; -EFFSR150 PO; -FLM4 PO; -HYDR25TA5 PO; -LEVO100T7 PO; -METO-217 PO; -MULT-513 PO; -NIFE1TAB53 PO; -OMEP40CA41 PO; -OXYSR10 PO; -RXC5 PO; -SUMA100T16 PO
--- NOTE | 2025-01-01 06:48 | History & Physical Bridge Note ---
Date of Service January 01, 2025 History & Physical Bridge Note I have examined the patient, reviewed the History & Physical and in the interval since the performance of the History & Physical I have noted the following changes of clinical significance: no changes noted
[2025-01-01] MEDS: ACETAMINOPHEN 500 MG TAB PO SCH ×2 (07:04→14:37)
[2025-01-01] MEDS: METOCLOPRAMIDE HCL 10 MG TABLET PO SCH (07:04)
[2025-01-01] MEDS: FAMOTIDINE 20 MG TAB PO SCH (07:04)
[2025-01-01] MEDS: dexAMETHasone**PF** 10 MG/ML VIAL IV SCH (07:05)
[2025-01-01] MEDS: CeleBREX 200 MG CAP PO SCH (07:05)
[2025-01-01] MEDS: LR 60ML/HR IV SCH (07:06)
[2025-01-01] MEDS: LR 500ML BOLUS, THEN 15ML/HR IV SCH (07:25)
[2025-01-01] MEDS ORDERED: GLYCOPYRROLATE 0.2 MG/ML VIAL ONE (07:49)
[2025-01-01] MEDS ORDERED: MIDAZOLAM HCL 1 MG/ML 2ML VIAL ONE ×2 (07:49→10:00)
[2025-01-01] MEDS ORDERED: ONDANSETRON INJ 2 MG/ML 2 ML VIAL ONE (07:49)
[2025-01-01] MEDS ORDERED: PROPOFOL IV EMULSION 10 MG/ML 20 ML VIAL IV ONE ×2 (07:49→10:53)
[2025-01-01] MEDS ORDERED: LIDOCAINE 2% 2 ML VIAL/AMP(20MG/ML) INFIL ONE (07:49)
[2025-01-01] MEDS ORDERED: KETAMINE HCL 10MG/ML SYR ONE (07:51)
[2025-01-01] MEDS ORDERED: ONDANSETRON INJ 2 MG/ML 2 ML VIAL IV PRN ×2 (07:52→12:25)
[2025-01-01] MEDS ORDERED: ATROPINE SULFATE 0.1 MG/ML 10ML SYR IV PRN (07:52)
[2025-01-01] MEDS ORDERED: DexMEDEtomidine HCL IV 100 MCG/ML VIAL IV ONE (09:11)
[2025-01-01] MEDS: TRANEXAMIC ACID 1,000 MG **IV Pre-op IV SCH (09:12)
[2025-01-01] MEDS: ceFAZolin 3000MG 3,000 MG/72.5 ML BAG IV SCH (09:37)
[2025-01-01] MEDS ORDERED: PHENYLEPHRINE HCL 10 MG/ML VIAL ONE (09:56)
[2025-01-01] MEDS ORDERED: PHENYLEPHRINE 100MCG/ML 5ML SYR ONE (09:56)
[2025-01-01] MEDS: BUPIVACAINE/EPINEPHRINE 0.5% MPF 1:200,000 30 ML VIAL ONE (10:17)
[2025-01-01] MEDS ORDERED: ePHEDrine sulfate 50 MG/5 ML SYR ONE (10:18)
[2025-01-01] MEDS ORDERED: VASOPRESSIN 20 UNIT/ML VIAL ONE (10:27)
--- NOTE | 2025-01-01 11:53 | Operative Report ---
PG Post Operative Report Pre & Post Diagnosis Operation Date: 01/01/25 08:50 Pre-Op Diagnosis: Left Hip Degenerative Joint Disease Post-Op Diagnosis: Left Hip Degenerative Joint Disease I identified the patient and participated in the time-out.: Yes Procedure Operation Date: 01/01/25 08:50 Actual Procedures p Left Total Hip Arthroplasty, Uncemented(Left) - Dagoberto Heart MD Surgeon Dagoberto Heart MD Turkish Rubber Gustavo Kirby PA-C Estimated Blood Loss 150 Findings Consistent with Post-Op Diagnosis Operative findings were advanced left hip DJD. He had grade 4 kcco-ml-oboe disease of the femoral head. He had complete loss of the cartilage with punctate hemorrhage of the femoral head. Moderate-sized joint effusion. Not much acetabular osteophyte formation. Specimens Left femoral head sent for pathology. Anesthesia Type Spinal MAC Complications none Disposition Accompanied Patient To Recovery: No Indications Patient is a 64-year-old gentleman who had a long history of hip problems. He had his right hip replaced in the past and then developed a postop infection and had a multiple revisions and most recently about 9 to 10 months ago at [facility]. He has been cleared of the infection and off antibiotics for over a year. X- rays show moderate to advanced left hip arthritis. Got an MRI which showed a significant hip joint arthritis with cystic change of the femoral head. He failed all conservative measures. He was strongly desiring total hip arthroplasty. We did discuss the increased risk of infection in this gentleman he was fully aware that. Description of Procedure Operative implants consist of: The 1 Biomet G7 size 60 mm acetabular shell. 2. 6.5 cancellous acetabular screws 135 mm length 125 mm length. 3. [place] hole watch inspector. 4. Highly cross-linked polyethylene liner with 40 mm inner diameter and 60 mm outer diameter. 5. DePuy Karaya size 15 KLA femoral stem. 6. +5/40 mm ceramic articular ball. The patient was taken to the op room, identified, and placed on the operating table in the supine position. All contractors were properly padded. IV antibiotics were by the anesthesia team. A spinal anesthetic been implemented holding area. The patient is then placed in the right lateral decubitus position. An axillary roll was placed. A stool Birkett position was used for positioning. The left hip and leg were then prepped and draped in the usual sterile fashion. A posterolateral approach to the left hip was then performed through a curvilinear incision centered over the greater trochanter. Sharp dissection was Through subcutaneous tissue down to level the IT band gluteal fascia but the IT band gluteal fascia were incised longitudinally in line with skin incision. The underlying greater bursa was excised. The piriformis and external rotators along with the posterior joint capsule were then released from the posterior aspect the hip as a single layer. The hip was internally rotated and dislocated. A femoral neck osteotomy cut was made with Final Cut about 2 cm above the lesser trochanter. Femoral head was removed and sent for pathology. The femur was retracted anteriorly. Attention drawn to the acetabulum. The acetabular labrum was excised. The Pulvinal fat was excised. Sequential reaming the acetabular was then performed again with size 49 and progressing up to a 59. We reamed a little bit with a 60 reamer and then placed a 60 mm Biomet G7 acetabular shell in about 4 degrees lateral opening and 20 degrees of anteversion. It was fixed with two 6.5 screws. A trial liner was placed. Attention then drawn the femur. The proximal femur was opened with cookie-cutter followed by canal finder. I then broached beginning with a size 8 and progressing up to a 15 point excellent fit of the 15. Trial the hip and the hip was fully stable and the leg lengths seemed pretty appropriate. His leg did seem a little bit longer than the other 1 clinically preoperatively and I wanted to try and avoid making any longer possible. The hip was fully stable. We elected to place these implants. I did elect to place a 40 mm head to maximize the stability. All trial implants were removed. An apex hole limited was placed. Highly cross-linked polyethylene liner with a philip placed inferior and posterior was then placed to maximize stability. A size 15 KLA femoral stem was impacted in position. A +5/40 mm ceramic articular ball was placed. It was located and once again found to be stable. Attention turned toward closing. The wound was irrigated coconuts pulsatile lavage solution. I did inject locally with 60 cc of half percent Marcaine with epinephrine. The posterior capsule and external rotators were then repaired to drill holes in the posterior trochanter with #2 Tycron suture. The IT band gluteal fascia then closed with #1 PDS suture in a running fashion the subcutaneous tissue then closed in 2 layers of deep layer #1 Vicryl suture in the subcutaneous tissues with 2-0 Dexon suture in a buried interrupted fashion. Skin was then closed with skin sunny. Leg was then cleaned and dried and a Prevena VAC dressing was applied due to the large nature of this gentleman. The patient was then transferred to the recovery room in stable condition. The patient tolerated the procedure well and there are no complications. Gustavo Kirby, my physician assistant operator, was present for the entire procedure. His assistance was required for proper patient positioning, prepping and draping, surgical exposure, retraction, perform the technical details of the operation, placement of the implants, closure of the incision site, placement of postoperative sterile bandage. I attest to the content of the Intraoperative Record and any orders documented therein. Any exceptions are noted below.
--- NOTE | 2025-01-01 11:57 | Anesthesiology Progress Note ---
Date of Service January 01, 2025 Anesthesia Post Procedure Vital Signs Vital Signs: Temp Pulse Pulse Resp BP Pulse Ox O2 Del Method 01/01/25 11:50 88 17 116/65 96 Oxymask 01/01/25 11:40 88 15 125/74 99 Oxymask 01/01/25 11:36 36.1 C L 96 H 21 118/72 95 Oxymask 01/01/25 06:55 37 C 95 H 20 154/95 H 97 Room Air O2 Flow Rate 01/01/25 11:50 3 01/01/25 11:40 6 01/01/25 11:36 6 01/01/25 06:55 Transfer of Care Handoff Completed per policy Notes Mental Status: alert / awake / arousable Patient Amnestic to Procedure: Yes Nausea / Vomiting: adequately controlled Pain: adequately controlled Airway Patency, RR, SpO2: stable & adequate BP & HR: stable & adequate Hydration State: stable & adequate Neuraxial Anesthesia: was administered and sensory block is resolving Anesthetic Complications: no major complications apparent and Pt Satisfied with anesthetic care
[2025-01-01] MEDS ORDERED: HYDROmorphone INJ 0.5 MG/0.5 ML SYR IV PRN (12:25)
[2025-01-01] MEDS ORDERED: NALOXONE HCL 0.4 MG/1 ML VIAL/CARP IV PRN (12:25)
[2025-01-01] MEDS ORDERED: ALUMINUM/MAGNESIUM SUSP 30 ML UDC PO PRN (12:25)
[2025-01-01] MEDS ORDERED: MAGNESIUM HYDROXIDE SUSP 30 ML UDC PO PRN (12:25)
[2025-01-01] MEDS ORDERED: METOCLOPRAMIDE HCL INJ 5 MG/ML 2 ML VIAL IV PRN (12:25)
--- NOTE | 2025-01-01 12:29 | XRay Report ---
XR hip 1V LT w pelvis CLINICAL HISTORY: IN PACU - Post Surgical COMPARISON: 01/07/2017 FINDINGS: Visualized portion of the right hip prosthesis shows no hardware complication. Left hip pr osthesis shows no hardware complication. There is expected soft tissue gas. Skin sunny are present laterally on the left. IMPRESSION: Unremarkable postoperative exam. ACT 112: Negative or not required by law. Electronically signed by: Hilton Ross M.D. 01/01/2025 12:28 PM
[2025-01-01] MEDS: KETOROLAC TROMETHAMINE 15 MG/ML VIAL IV SCH (12:57)
[2025-01-01] MEDS: SODIUM CHLORIDE 0.9% 1,000 ML IV SCH (13:01)
[2025-01-01] MEDS ORDERED: ACETAMINOPHEN 500 MG TAB PO SCH (14:00)
[2025-01-01] MEDS: ASCORBIC ACID 500 MG TAB PO SCH (17:54)
[2025-01-01] MEDS: TRANEXAMIC ACID / 0.7% NACL 1,000 MG/100 ML BAG IV SCH (17:58)
[2025-01-01] MEDS: SENNA 8.6 MG TAB PO SCH ×2 (21:14)
[2025-01-01] MEDS: DOCUSATE SODIUM 100 MG CAP PO SCH (21:14)
[2025-01-01] MEDS: ASPIRIN 81 MG ECTAB PO SCH (21:15)
[2025-01-01] MEDS: ATORVASTATIN 20 MG TAB PO SCH (21:15)
[2025-01-02 03:26] VITALS: TEMP 98.1
[2025-01-02] MEDS: LEVOTHYROXINE SODIUM 112 MCG TABLET PO SCH (05:21)
[2025-01-02 08:05] LABS: Hematocrit (blood only) 34.0 % (42.0-52.0); Hemoglobin 11.2 g/dl (14.0-18.0); Immature Granulocytes # (auto) 0.06 K/uL (0.01-0.20); Immature Granulocytes % (auto) 0.5 %; Mean Corpuscular Hemoglobin 25.5 pg (25.0-34.0); Mean Corpuscular Volume 77.4 fL (80.0-100.0); Platelet Count 273 K/uL (130-400); RDW Standard Deviation 43.9 fL (36.4-46.3); Red Blood Count 4.39 M/uL (4.70-6.10); White Blood Count 12.80 K/ul (4.8-10.8)
[2025-01-02 08:10] VITALS: BP 164/83; PULSE 75; RESP 18; O2SAT 96
[2025-01-02 08:33] LABS: Anion Gap 7.0 (3-11); Blood Urea Nitrogen 17.0 mg/dl (6-23); Calcium 8.7 mg/dl (8.6-10.3); Carbon Dioxide 28.0 mmol/L (21-32); Chloride 103.0 mmol/L (98-107); Creatinine Clr Calc Pharmacy 114.8 ml/min; Glucose 127.0 mg/dl (70-99(Fasting)); Potassium 3.9 mmol/L (3.5-5.1); Sodium 138.0 mmol/L (136-145)
[2025-01-02] MEDS: NIFEdipine EXTENDED REL 30 MG TABCR PO SCH (09:06)
[2025-01-02] MEDS: hydroCHLOROthiazide 25 MG TAB PO SCH (09:06)
[2025-01-02] MEDS: dexAMETHasone 10 MG in SYRINGE 0 ML IV SCH (09:07)
[2025-01-02] MEDS: MULTIVITAMIN TAB PO SCH (09:07)
[2025-01-02] MEDS: TAMSULOSIN HCL 0.4 MG CAP PO SCH (09:07)
[2025-01-02] MEDS: LOSARTAN POTASSIUM 50 MG TAB PO SCH (09:07)
[2025-01-02] MEDS: VENLAFAXINE HCL XR 150 MG CAPXR PO SCH (09:08)
[2025-01-02] MEDS: METOPROLOL SUCC 50MG EXT REL TAB PO SCH (09:08)
--- NOTE | 2025-01-02 09:34 | Orthopedic Progress Note ---
Date of Service January 02, 2025 Assessment & Plan (1) S/P total left hip arthroplasty: * Continue Current Treatment * Disposition: home * Daily treatment: Physical Therapy/ Occupational Therapy per protocol * Weight bearing status: WBAT, hip precautions * Continue to monitor for ABLA * Pain control * DVT prophylaxis, ASA * Prevena currently well sealed and functioning, will monitor * Office/hospital f/u 2 weeks for progress check and staple/suture removal * Plan for discharge today pending PT/OT clearance Subjective .Active Problems: S/p left NANCY POD 1 64 y/o male s/p left NANCY. Doing well overall, pain managed and improved function. Denies fever/chills, chest pain/SOB, nausea/vomiting. Otherwise no complaints. Prevena well sealed at time of exam, but per nursing was giving error message overnight. Review of Systems All systems reviewed & are unremarkable except as noted in HPI & below. Physical Exam . * General: Alert and oriented, no acute distress * Constitutional: well-developed, well-nourished. * Respiratory: Normal respiratory effort, no distress * Gastrointestinal: No tenderness to palpation, no rigidity or guarding. * Skin: No rash or lesion. * Neurologic: Grossly normal * Musculoskeletal: Left hip surgical dressing CDI, Prevena intact, not removed for exam. Otherwise no obvious deformity or overlying skin changes. Diffuse TTP proximal thigh and hip region. Otherwise no specific tenderness of distal thigh, lower leg, foot/ankle. AROM hip flexion intact. AROM foot/ankle intact. Sensation intact plantar/dorsal foot. Brisk capillary refill. Results & Data Results & Data Laboratory Results . Diagnostic Findings . Hip/Pelvis X-Ray 01/01/25 11:46 XR hip 1V LT w pelvis CLINICAL HISTORY: IN PACU - Post Surgical COMPARISON: 01/07/2017 FINDINGS: Visualized portion of the right hip prosthesis shows no hardware complication. Left hip prosthesis shows no hardware complication. There is expected soft tissue gas. Skin sunny are present laterally on the left. IMPRESSION: Unremarkable postoperative exam. ACT 112: Negative or not required by law. Electronically signed by: Hilton Ross M.D. 01/01/2025 12:28 PM PG Care Time/CCT Total # of Minutes Spent Total Time Spent with Patient: Total time spent is greater than 50% in coordination of care (as documented) at patient's floor/unit and/or counseling patient: Coding Level of Care Code 97826 Post Operative Follow-Up Diagnoses S/P total left hip arthroplasty Z96.642
== END 2025-01-02 11:01 | disposition home or self-care (01) ==
LOC: 3N 06:36 → ASU 06:36
DX: M16.12 Unilateral primary osteoarthritis, left hip; E03.9 Hypothyroidism, unspecified; M65.98 Unspecified synovitis and tenosynovitis, other site; Z79.899 Other long term (current) drug therapy; M25.752 Osteophyte, left hip; Z96.641 Presence of right artificial hip joint; I73.00 Raynaud's syndrome without gangrene; Z88.8 Allergy status to other drugs, medicaments and biological substances; Z79.82 Long term (current) use of aspirin; I12.9 Hypertensive chronic kidney disease with stage 1 through stage 4 chronic kidney disease, or unspecified chronic kidney disease; N18.31 Chronic kidney disease, stage 3a